=== PATIENT | female | born 1940 | race Caucasian/White ===

== ENCOUNTER → 2019-09-17 09:56 | Outpatient (BNVA) | payer MEDICARE, MEDICAID, SELFPAY | PROVIDERS: Family Provider Family Medicine; PCP Family Medicine; Visit Provider Anesthesiology | DX: M47.817 Spondylosis without myelopathy or radiculopathy, lumbosacral region (principal); M43.06 Spondylolysis, lumbar region; M51.36 Other intervertebral disc degeneration, lumbar region; M47.819 Spondylosis without myelopathy or radiculopathy, site unspecified; M46.1 Sacroiliitis, not elsewhere classified; Z79.891 Long term (current) use of opiate analgesic | CPT/HCPCS: 99214 ==

== ENCOUNTER → 2020-02-10 11:09 | Outpatient (BNVA) | payer MEDICARE, OTHER, MEDICAID, SELFPAY | PROVIDERS: Family Provider Family Medicine; PCP Family Medicine; Visit Provider Nurse Practitioner Family | DX: N39.41 Urge incontinence (principal); R82.71 Bacteriuria | CPT/HCPCS: 80053; 81001; 87077; 87086; 87186 ==

== ENCOUNTER → 2020-03-30 10:33 | Outpatient (BNVA) | payer MEDICARE, OTHER, MEDICAID, SELFPAY | PROVIDERS: Family Provider Family Medicine; PCP Family Medicine; Visit Provider Anesthesiology | DX: M54.41 Lumbago with sciatica, right side (principal); M51.36 Other intervertebral disc degeneration, lumbar region; M43.06 Spondylolysis, lumbar region; M47.817 Spondylosis without myelopathy or radiculopathy, lumbosacral region; M47.819 Spondylosis without myelopathy or radiculopathy, site unspecified; Z79.891 Long term (current) use of opiate analgesic | CPT/HCPCS: 99214 ==

== ENCOUNTER → 2020-05-26 10:36 | Outpatient (BNVA) | payer MEDICARE, OTHER, MEDICAID, SELFPAY | PROVIDERS: Family Provider Family Medicine; PCP Family Medicine; Visit Provider Nurse Practitioner | DX: M51.36 Other intervertebral disc degeneration, lumbar region (principal); M43.06 Spondylolysis, lumbar region; M47.817 Spondylosis without myelopathy or radiculopathy, lumbosacral region; M46.1 Sacroiliitis, not elsewhere classified; M47.819 Spondylosis without myelopathy or radiculopathy, site unspecified; Z79.891 Long term (current) use of opiate analgesic | CPT/HCPCS: 99213 ==

== ENCOUNTER → 2020-08-24 08:21 | Outpatient (BNVA) | payer MEDICARE, OTHER, MEDICAID, SELFPAY | PROVIDERS: Family Provider Family Medicine; PCP Family Medicine; Visit Provider Nurse Practitioner | DX: M43.06 Spondylolysis, lumbar region (principal); M51.36 Other intervertebral disc degeneration, lumbar region; M47.817 Spondylosis without myelopathy or radiculopathy, lumbosacral region; M47.819 Spondylosis without myelopathy or radiculopathy, site unspecified; Z79.891 Long term (current) use of opiate analgesic | CPT/HCPCS: 99214 ==

== ENCOUNTER → 2020-09-24 09:37 | Outpatient (BNVA) | payer MEDICARE, OTHER, MEDICAID, SELFPAY | PROVIDERS: Family Provider Family Medicine; PCP Family Medicine; Visit Provider Anesthesiology | DX: M51.36 Other intervertebral disc degeneration, lumbar region (principal); M43.06 Spondylolysis, lumbar region; M47.817 Spondylosis without myelopathy or radiculopathy, lumbosacral region; M47.819 Spondylosis without myelopathy or radiculopathy, site unspecified; Z79.891 Long term (current) use of opiate analgesic | CPT/HCPCS: 99213 ==

== ENCOUNTER 2020-10-06 23:59 | Inpatient (IN) | payer MEDICARE, OTHER, MEDICAID, SELFPAY ==
[2020-10-07] VITALS (9 sets, daily range): BP systolic 100–142; BP diastolic 54–76; PULSE 97–122; RESP 16–24; TEMP 36.4–38.3; O2SAT 89–95; BMI 25.0
--- NOTE | 2020-10-07 00:11 | ECG_ITS ---
[facility] Test Date: 2020-10-07 Pat Name: Shari Mcclelland Department: Room: Gender: Female Paving Machine Operator: : [id number] Requested By: Andree Madsen Order Number: [id number] Joanne MD: Jill Garcia M.D. Measurements Intervals [place]ones Rate: 121 P: 62 PA: 172 QRS: -25 QRSD: 88 T: -68 QT: 338 QTc: 481 Interpretive Statements SINUS TACHYCARDIA POSSIBLE ANTERIOR MYOCARDIAL INFARCTION , OF INDETERMINATE AGE MODERATE T-WAVE ABNORMALITY, CONSIDER LATERAL ISCHEMIA MODERATE T-WAVE ABNORMALITY, CONSIDER INFERIOR ISCHEMIA Compared to ECG 03/02/2018 07:21:05 Myocardial infarct finding now present Possible ischemia now present Sinus rhythm no longer present T-wave abnormality still present Electronically Signed On 10-07-2020 7:26:18 FILEMAKER DEVELOPER by Jill Garcia M.D. [id number]
--- NOTE | 2020-10-07 00:13 | CTR_ITS ---
PROCEDURE INFORMATION: Exam: CT Head Without Contrast Exam date and time: 10/07/2020 12:22 AM Age: 79 years old Clinical indication: Altered mental status/memory loss; Patient HX: AMS. Decreased responsiveness. History of frequent falls. TECHNIQUE: Imaging protocol: Computed tomography of the head without contrast. Radiation optimization: All CT scans at this facility use at least one of these dose optimization techniques: automated exposure control; mA and/or kV adjustment per patient size (includes targeted exams where dose is matched to clinical indication); or iterative reconstruction. COMPARISON: CT head wo con* [id number] 02/27/2018 11:00 PM RADIATION DOSE METRICS: Total DLP (mGy-cm): 706.25 FINDINGS: Brain: There is mild diffuse cerebral atrophy. There is no acute intracranial hemorrhage. Cerebral ventricles: There is moderate ex vacuo dilation of the lateral ventricles. Basal cisterns are unremarkable. Bones/joints: The calvarium is intact. Paranasal sinuses: The paranasal sinuses are clear. Mastoid air cells: The mastoid air cells are clear. Soft tissues: The visible extracranial soft tissues are unremarkable. CT/CT head wo con* [id number] IMPRESSION: 1. No acute intracranial abnormality. 2. Stable moderate dilation of the lateral ventricles, greater than expected for the degree of atrophy. No change since 02/27/2018. Radiation Dose CTDIVOL = (mGy): DLP = 706.25 (mGy-cm)
[2020-10-07 00:40] LABS: Basophils % 0.6 %; Eosinophils % 0.2 %; Hematocrit 43.8 % (37.0-47.0); Hemoglobin 14.8 g/dL (11.5-15.3); Lymphocytes # 0.2 10^3/uL (0.8-4.8); Lymphocytes % 2.6 %; Mean Corpuscular HGB Conc 33.8 g/dL (30.0-36.0); Mean Corpuscular Hemoglobin 30.2 pg (28.0-34.0); Mean Corpuscular Volume 89.4 fL (81-99); Monocytes % 0.5 %; Neutrophils # 6.11 10^3/uL (1.8-7.7); Neutrophils % 95.2 %; Nucleated Red Blood Cells % 0 %; Platelet Count 159 10^3/cmm (130-400); Red Cell Distribution Width 12.9 % (12.1-15.1); White Blood Count 6.4 10^3/uL (4.0-10.0)
--- NOTE | 2020-10-07 00:49 | ED_ITS ---
HPI - Altered Mental Status General: Chief Complaint: Altered Mental Status Stated Complaint: vomiting Time Seen by Provider: 10/07/20 00:05 Source: EMS and other (detention staff) Mode of arrival: EMS Limitations: altered mental status History of Present Illness: HPI narrative: 79-[facility]-old female, [facility], brought in by EMS after [facility] staff reported that she woke up from sleep, vomited several times, and seemed confused. No fever. No recent complaints of abdominal pain or other GI symptoms. When EMS arrived, she was leaning over the bed rail, unresponsive to anything but painful stimuli. She had stable vital signs however. On arrival at the ED, she had a GCS of 8 initially, and shortly after she did start to follow some verbal commands was able to answer simple questions. On review of her medical records, she has a history of chronic pain, recurrent UTIs, CAD without mention of PCI or previous FL. No recent change in her daily opiate dosage. 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, without behavioral disturbance, loses train of thought, poor recall Depressive disorder Dyslipidemia Facet joint disease Fibromyalgia GERD (gastroesophageal reflux disease) History of 2019 novel coronavirus disease (COVID-19) Hypothyroidism Lumbar spondylolysis Nocturnal enuresis Opioid dependence NOAM (obstructive sleep apnea) Osteoporosis Spondylosis of lumbosacral region Urgency incontinence Surgical History (Updated 10/07/20 @ 05:24 by Rosie Jacome MD) H/O section x2 History of carpal tunnel release bilateral S/P appendectomy S/P cholecystectomy S/P total knee replacement Left Family History Other Diabetes Hypertension Social History (Updated 10/07/20 @ 08:13 by Rosie Jacome MD) Smoking and tobacco status: never smoked Alcohol intake: never Adopted: No Housing: Senior Living Marital status: Current occupational status: retired Current gender identity: Female Physical Exam Const: EXAM LIMITATIONS: altered mental status GENERAL APPEARANCE: lethargic, ill appearing and frail appearing NUTRITIONAL APPEARANCE: underweight ORIENTATION/CONSCIOUSNESS: Yes oriented to person, Yes patient obtunded and Yes lethargic HENMT: COMMON NORMALS: normocephalic and atraumatic HEAD & SCALP: normocephalic and atraumatic FACE & SINUS: face symmetric MOUTH: Normal oral and palatal mucosa present (Dry mucous membranes, edentulous) Eye: COMMON NORMALS: Equal, round and reactive pupils present and conjunctivae normal CONJUNCTIVA: Yes conjunctivae normal SCLERA: sclerae normal CORNEA: Yes corneas normal PUPIL: Yes Equal, round and reactive pupils present Chest: COMMONS NORMALS: normal inspection of the chest and normal palpation of entire chest wall Resp: COMMON NORMALS: normal respiratory effort EFFORT & INSPECTION: Yes symmetric chest movement, No tachypneic, No respiratory distress and No labored Cardio: COMMON NORMALS: regular rhythm RATE: tachycardic RHYTHM: regular rhythm HEART SOUNDS: no murmurs GI: COMMON NORMALS: Soft to palpation and non-tender AUSCULTATION: Yes normoactive bowel sounds PALPATION: Yes Soft to palpation, No Guarding due to palpation present (GI), No Rigid due to palpation, No Pulsatile mass present and No Ascites present Back/Pelvis: GENERAL BACK: No erythema and No ecchymosis Extremity: COMMON NORMALS: no pedal edema GENERAL: No clubbing, No cyanosi s, No deformity and Yes pallor Neuro: ALEX COMA SCALE: document GCS findings [place] coma scale eye opening: To sound Alex coma scale verbal response: Words [place] coma scale motor response: Obey commands [place] coma scale total score: 12 COMMON NORMALS: moves all extremities and no focal motor deficits SENSORIUM/ORIENTATION: Yes oriented to person, Yes lethargic, Yes somnolent and Yes fluctuating sensorium GAIT: Yes Unable to assess gait MOTOR EXAM: No Tremors during motor activity present, No Motor fasciculations present and No Abnormal muscle tone present Skin: GENERAL SKIN EXAM: dry skin, no ecchymo, no erythema, no jaundice, no mottling, no petechiae, no purpura and turgor decreased Course Vital Signs: Vital signs: Vital Signs Temperature 97.8 F 10/07/20 07:48 Pulse Rate 103 H 10/07/20 07:48 Respiratory Rate 18 10/07/20 07:48 Blood Pressure 125/61 10/07/20 07:48 Pulse Oximetry 92 10/07/20 07:48 MDM - Altered Mental Status MDM Narrative: Medical decision making narrative: 79-year-old female [facility] with [facility], vomiting, and decreased responsiveness. GCS in the field 7, 8 on arrival, improved to 13 after initial resuscitation with fluids and antibiotics. Still very lethargic and frail appearing. CT head negative for any acute process. CBC normal. pH 7.42, PaO2 70 on 3 LNC Chest x-ray without any acute abnormalities. CTA chest done due to D-dimer greater> 20, tachycardia, and hypoxia; no acute PE or consolidations. Stool sent for C. difficile, patient had several episodes of diarrhea. Discussed the case with Dr. Jacome,hospitalist. She accepts the admission. Lab Data: Labs: Lab Results 10/07/20 10/07/20 10/07/20 Range/Units 00:20 00:20 00:20 WBC 6.4 (4.0-10.0) 10^3/ uL RBC 4.90 (4.1-5.3) 10^6/u L Hgb 14.8 (11.5-15.3) g/dL Hct 43.8 (37.0-47.0) % MCV 89.4 (81-99) fL MCH 30.2 (28.0-34.0) pg MCHC 33.8 (30.0-36.0) g/dL RDW 12.9 (12.1-15.1) % Plt Count 159 (130-400) 10^3/c mm MPV 9.0 (7.4-10.4) fL Neut % (Auto) 95.2 % Lymph % (Auto) 2.6 % [place] % (Auto) 0.5 % Eos % (Auto) 0.2 % Baso % (Auto) 0.6 % Neut # (Auto) 6.11 (1.8-7.7) 10^3/u L Lymph # (Auto) 0.2 L (0.8-4.8) 10^3/u L [place] # (Auto) 0.0 L (0.2-0.9) 10^3/u L Eos # (Auto) 0.0 (0.0-0.8) 10^3/u L Baso # (Auto) 0.0 (0.0-0.1) 10^3/u L Nucleated RBC % (a uto) 0 % Nucleated RBCs # 0.0 /100WBC PT 15.30 H (12.1-14.9) SECO NDS INR 1.17 (0.8-1.2) D-Dimer >= 20.00 H (0-0.59) ug/mIFE U Specimen Type Sample Site ABG pH (7.35-7.45) ABG pCO2 (35-45) mmHg ABG pO2 (80.0-100.0) mmH g ABG HCO3 (22-26) mmol/L ABG O2 Saturation ABG Base Excess (-2.0-2.0) mmol/ L Brenton Test A-a O2 Gradient (5-10) mmHg Hematocrit (37-47) % Hgb O2 Saturation (95-100) % Carboxyhemoglobin (0.4-20.1) %THgb Methemoglobin (0.4-1.5) % Total Hemoglobin (12-16) g/dL Ionized Calcium (1.1-1.4) mmol/L O2 Delivery Device O2 Liters/Min % FiO2 % [employer] Reading Teacher ID Sodium 141 (136-145) mmol/L Potassium 3.2 L (3.5-5.1) mmol/L Chloride 102 (98-107) mmol/L Carbon Dioxide 24 (22-29) mmol/L Anion Gap 18.2 (5-19) BUN 14 (8-23) mg/dL Creatinine 1.0 H (0.5-0.9) mg/dL GFR Calculation Not Reportable Glucose 140 H (65-115) mg/dL Calculated Osmolal ity 295 (285-295) mOsm/k g Lactic Acid (0.5-2.2) mmol/L Lactic Acid (Sepsi s) (0.5-2.2) mmol/L Calcium 9.0 (8.5-10.5) mg/dL Magnesium 1.6 L (1.7-2.3) mg/dL Total Bilirubin 1.0 (0.15-1.2) mg/dL AST 215 H (0-32) U/L ALT 101 H (0-33) U/L Alkaline Phosphata se 136 H (35-105) IU/L Creatine Kinase 80 (26-192) U/L Total Protein 6.6 (6.6-8.7) g/dL Albumin 3.9 (3.5-5.2) g/dL Globulin 2.7 (1.3-4.6) g/dL Lipase 8 L (13-60) U/L Urine Color (Yellow) Urine Appearance (CLEAR) Urine pH (5-7) Ur Specific Gravit y (1.005-1.030) Urine Protein (Negative) Urine Glucose (UA) (Normal) Urine Ketones (Negative) Urine Blood (Negative) Urine Nitrate (Negative) Urine Bilirubin (Negative) Urine Urobilinogen (Negative) mg/dL Ur Leukocyte Sunni ase (Negative) Urine RBC (0-2) /hpf Urine WBC (0-5) /hpf Ur Squamous Epith Cells (0-5) /hpf Amorphous Sediment Urine Bacteria (NONE) /hpf Urine Mucus /hpf 10/07/20 10/07/20 10/07/20 Range/Units 00:20 00:30 00:45 WBC (4.0-10.0) 10^3/ uL RBC (4.1-5.3) 10^6/u L Hgb (11.5-15.3) g/dL Hct (37.0-47.0) % MCV (81-99) fL MCH (28.0-34.0) pg MCHC (30.0-36.0) g/dL RDW (12.1-15.1) % Plt Count (130-400) 10^3/c mm MPV (7.4-10.4) fL Neut % (Auto) % Lymph % (Auto) % [place] % (Auto) % Eos % (Auto) % Baso % (Auto) % Neut # (Auto) (1.8-7.7) 10^3/u L Lymph # (Auto) (0.8-4.8) 10^3/u L [place] # (Auto) (0.2-0.9) 10^3/u L Eos # (Auto) (0.0-0.8) 10^3/u L Baso # (Auto) (0.0-0.1) 10^3/u L Nucleated RBC % (a uto) % Nucleated RBCs # /100WBC PT (12.1-14.9) SECO NDS INR (0.8-1.2) D-Dimer (0-0.59) ug/mIFE U Specimen Type Arterial Sample Site Radial, right ABG pH 7.42 (7.35-7.45) ABG pCO2 38.7 (35-45) mmHg ABG pO2 70.0 L (80.0-100.0) mmH g ABG HCO3 25.2 (22-26) mmol/L ABG O2 Saturation 95.2 ABG Base Excess 0.8 (-2.0-2.0) mmol/ L Brenton Test N/a A-a O2 Gradient 10.8 H (5-10) mmHg Hematocrit 45.1 (37-47) % Hgb O2 Saturation 93.5 L (95-100) % Carboxyhemoglobin 0.8 (0.4-20.1) %THgb Methemoglobin 1.0 (0.4-1.5) % Total Hemoglobin 14.7 (12-16) g/dL Ionized Calcium 1.1 (1.1-1.4) mmol/L O2 Delivery Device Nc O2 Liters/Min 2.0 % FiO2 28.0 % [employer] Reading Teacher ID [id number] Sodium 142.0 (136-145) mmol/L Potassium 3.0 L (3.5-5.1) mmol/L Chloride (98-107) mmol/L Carbon Dioxide (22-29) mmol/L Anion Gap (5-19) BUN (8-23) mg/dL Creatinine (0.5-0.9) mg/dL GFR Calculation Glucose 159.0 H (65-115) mg/dL Calculated Osmolal ity (285-295) mOsm/k g Lactic Acid 3.1 H (0.5-2.2) mmol/L Lactic Acid (Sepsi s) (0.5-2.2) mmol/L Calcium (8.5-10.5) mg/dL Magnesium (1.7-2.3) mg/dL Total Bilirubin (0.15-1.2) mg/dL AST (0-32) U/L ALT (0-33) U/L Alkaline Phosphata se (35-105) IU/L Creatine Kinase (26-192) U/L Total Protein (6.6-8.7) g/dL Albumin (3.5-5.2) g/dL Globulin (1.3-4.6) g/dL Lipase (13-60) U/L Urine Color Yellow (Yellow) Urine Appearance Cloudy (CLEAR) Urine pH 5 (5-7) Ur Specific Gravit y 1.010 (1.005-1.030) Urine Protein Neg (Negative) Urine Glucose (UA) Norm (Normal) Urine Ketones Negative (Negative) Urine Blood 3+ H (Negative) Urine Nitrate Negative (Negative) Urine Bilirubin Neg (Negative) Urine Urobilinogen Norm (Negative) mg/dL Ur Leukocyte Sunni ase Negative (Negative) Urine RBC >100 H (0-2) /hpf Urine WBC >100 H (0-5) /hpf Ur Squamous Epith Cells 0-4 H (0-5) /hpf Amorphous Sediment Not Reportable Urine Bacteria 3+ H (NONE) /hpf Urine Mucus Trace /hpf 10/07/20 Range/Units 04:17 WBC (4.0-10.0) 10^3/ uL RBC (4.1-5.3) 10^6/u L Hgb (11.5-15.3) g/dL Hct (37.0-47.0) % MCV (81-99) fL MCH (28.0-34.0) pg MCHC (30.0-36.0) g/dL RDW (12.1-15.1) % Plt Count (130-400) 10^3/c mm MPV (7.4-10.4) fL Neut % (Auto) % Lymph % (Auto) % [place] % (Auto) % Eos % (Auto) % Baso % (Auto) % Neut # (Auto) (1.8-7.7) 10^3/u L Lymph # (Auto) (0.8-4.8) 10^3/u L [place] # (Auto) (0.2-0.9) 10^3/u L Eos # (Auto) (0.0-0.8) 10^3/u L Baso # (Auto) (0.0-0.1) 10^3/u L Nucleated RBC % (a uto) % Nucleated RBCs # /100WBC PT (12.1-14.9) SECO NDS INR (0.8-1.2) D-Dimer (0-0.59) ug/mIFE U Specimen Type Sample Site ABG pH (7.35-7.45) ABG pCO2 (35-45) mmHg ABG pO2 (80.0-100.0) mmH g ABG HCO3 (22-26) mmol/L ABG O2 Saturation ABG Base Excess (-2.0-2.0) mmol/ L Brenton Test A-a O2 Gradient (5-10) mmHg Hematocrit (37-47) % Hgb O2 Saturation (95-100) % Carboxyhemoglobin (0.4-20.1) %THgb Methemoglobin (0.4-1.5) % Total Hemoglobin (12-16) g/dL Ionized Calcium (1.1-1.4) mmol/L O2 Delivery Device O2 Liters/Min % FiO2 % [employer] Reading Teacher ID Sodium (136-145) mmol/L Potassium (3.5-5.1) mmol/L Chloride (98-107) mmol/L Carbon Dioxide (22-29) mmol/L Anion Gap (5-19) BUN (8-23) mg/dL Creatinine (0.5-0.9) mg/dL GFR Calculation Glucose (65-115) mg/dL Calculated Osmolal ity (285-295) mOsm/k g Lactic Acid (0.5-2.2) mmol/L Lactic Acid (Sepsi s) 2.6 H (0.5-2.2) mmol/L Calcium (8.5-10.5) mg/dL Magnesium (1.7-2.3) mg/dL Total Bilirubin (0.15-1.2) mg/dL AST (0-32) U/L ALT (0-33) U/L Alkaline Phosphata se (35-105) IU/L Creatine Kinase (26-192) U/L Total Protein (6.6-8.7) g/dL Albumin (3.5-5.2) g/dL Globulin (1.3-4.6) g/dL Lipase (13-60) U/L Urine Color (Yellow) Urine Appearance (CLEAR) Urine pH (5-7) Ur Specific Gravit y (1.005-1.030) Urine Protein (Negative) Urine Glucose (UA) (Normal) Urine Ketones (Negative) Urine Blood (Negative) Urine Nitrate (Negative) Urine Bilirubin (Negative) Urine Urobilinogen (Negative) mg/dL Ur Leukocyte Sunni ase (Negative) Urine RBC (0-2) /hpf Urine WBC (0-5) /hpf Ur Squamous Epith Cells (0-5) /hpf Amorphous Sediment Urine Bacteria (NONE) /hpf Urine Mucus /hpf Discharge Plan Discharge Patient Disposition: Admitted As Inpatient Admit Provider: Rosie Jacome Clinical Impression: Level of consciousness decreased, Acute alteration in mental status, Acute UTI, Acute dehydration Condition: Stable Coding Level of Care Code ED Press Tool Maker for Chg Fwd Exam Comprehensive
[2020-10-07 00:52] LABS: Bilirubin Urine Neg (Negative); Blood Urine 3+ (Negative); Glucose Urine UA Norm (Normal); Ketones Urine Negative (Negative); Leukocyte Esterase Urine Negative (Negative); Nitrate Urine Negative (Negative); Protein Urine Neg (Negative); Urine Appearance Cloudy (CLEAR); Urine Color Yellow (Yellow); Urobilinogen Urine Norm (Negative); pH Urine 5 (5-7)
[2020-10-07 00:53] LABS: RBC Urine >100 /hpf (0-2); Squamous Epithelial Cell Urine 0-4 /hpf (0-5); WBC Urine >100 /hpf (0-5)
[2020-10-07 00:53] LABS: INR 1.17 (0.8-1.2)
[2020-10-07 00:54] LABS: Add Urine Culture? Yes; Bacteria Urine 3+ /hpf; Mucus Urine TRACE /hpf
[2020-10-07 00:56] LABS: ABG PCO2 38.7 mmHg (35-45); ABG PH Result 7.42 (7.35-7.45); Alveolar-Arterial Oxygen Gradi 10.8 mmHg (5-10); Arterial Blood Gas Hematocrit 45.1 % (37-47); Base Excess ABG 0.8 mmol/L (-2.0-2.0); Blood Gas Sample Site Radial, right; Blood Gas Sample Type Arterial; Carboxyhemoglobin 0.8 %THgb (0.4-20.1); HCO3 ABG 25.2 mmol/L (22-26); HGB O2 Sat 93.5 % (95-100); Ionized Calcium Level - ABG 1.1 mmol/L (1.1-1.4); Oxygen Device NC; Oxygen Saturation ABG 95.2; Total Hemoglobin 14.7 g/dL (12-16)
[2020-10-07 01:00] LABS: Alanine Aminotransferase 101 U/L (0-33); Albumin Level 3.9 g/dL (3.5-5.2); Alkaline Phosphatase 136 IU/L (35-105); Anion Gap 18.2 (5-19); Aspartate Amino Transferase 215 U/L (0-32); Blood Urea Nitrogen 14 mg/dL (8-23); Carbon Dioxide 24 mmol/L (22-29); Chloride 102 mmol/L (98-107); Creatine Phosphokinase 80 U/L (26-192); Globulin 2.7 g/dL (1.3-4.6); Glucose 140 mg/dL (65-115); Lipase 8 U/L (13-60); Magnesium 1.6 mg/dL (1.7-2.3); Osmolality Calculated 295 mOsm/kg (285-295); Potassium 3.2 mmol/L (3.5-5.1); Sodium 141 mmol/L (136-145); Total Protein 6.6 g/dL (6.6-8.7)
[2020-10-07 01:02] LABS: Lactic Sepsis W/Reflex 3.1 mmol/L (0.5-2.2)
[2020-10-07 01:10] LABS: D Dimer >= 20.00 ug/mIFEU (0-0.59)
[2020-10-07] MEDS: sodium chloride 0.9% 1,000 ML 999 ML IV ×2 (01:12→03:05)
[2020-10-07] MEDS: cefTRIAXone 1,000 MG in sodium chloride 0.9% (plus) 50 ML 100 MG IV (01:12)
--- NOTE | 2020-10-07 01:13 | CTR_ITS ---
PROCEDURE INFORMATION: Exam: CT Angiography Chest With Contrast Exam date and time: 10/07/2020 1:19 AM Age: 79 years old Clinical indication: Shortness of breath; Prior surgery; Surgery type: Gb; Patient HX: AMS. Tachycardic with hypoxia on room air. ; Additional info: Tachycardia, hypoxia, altered mental status TECHNIQUE: Imaging protocol: Computed tomographic angiography of the chest with contrast. 3D rendering (Not supervised by radiologist): MIP and/or 3D reconstructed images were created by the technologist. Radiation optimization: All CT scans at this facility use at least one of these dose optimization techniques: automated exposure control; mA and/or kV adjustment per patient size (includes targeted exams where dose is matched to clinical indication); or iterative reconstruction. Contrast material: VISI 320; Contrast volume: 78 ml; Contrast route: INTRAVENOUS (IV); COMPARISON: CR Chest 1 [place] [id number] 03/02/2018 7:39 AM RADIATION DOSE METRICS: Total DLP (mGy-cm): 468.47 FINDINGS: Limitations: Motion on multiple slices. Prominent streak artifacts from dense venous contrast. Pulmonary arteries: No central embolus or suggestion of a segmental embolus. Poor detail of multiple subsegmental pulmonary arteries. Aorta: No aortic aneurysm or suggestion of dissection. Lungs: Patchy stranding and minimal haziness in the lungs, mostly in the right lower lobe. No consolidation. Pleural spaces: No pleural fluid or pneumothorax. Heart: Slight cardiac prominence. No pericardial effusion. Lymph nodes: No suggestion of enlarged nodes. Diaphragm: Elevation of the right hemidiaphragm. Liver: Extension of the right colon anterior to the liver. Gallbladder and bile ducts: Cholecystectomy. Bones/joints: A few old minimal compression fractures. Subchondral defects in the humeral heads. Soft tissues: Probable evidence of stranding in the left anterior pararenal fat on the lowest slices. CT/CT angio chest PE protcl [id number] IMPRESSION: 1. No large pulmonary embolus. Poor detail of multiple small pulmonary arteries. 2. Probable stranding in the left anterior pararenal fat in the upper abdomen, significance unclear. 3. Patchy stranding and minimal haziness in the lungs consistent with atelectasis. Other findings detailed above. Radiation Dose CTDIVOL = (mGy): DLP = 468.47 (mGy-cm)
--- NOTE | 2020-10-07 01:44 | PC.NURSE ---
Pt son at bedside - update given.
[2020-10-07] MEDS: iodixanol 320 mg/mL 100mL Btl IV (01:46)
[2020-10-07 02:20] LABS: Reflex Lactate Order REFLEX LACTIC ORDERD
[2020-10-07 04:38] LABS: Lactic Acid level (Lactate) 2.6 mmol/L (0.5-2.2)
--- NOTE | 2020-10-07 04:54 | PM.HP ---
Providers/Chief Complaint Admitting Physician: Rosie Jacome MD Primary Care Provider: Kim Kemp MD Chief Complaint: vomiting History of Present Illness Shari Mcclelland is a 79 year old female who presents from [place] with vomiting and change in mental status. She vomited multiple times. No report of any blood in the vomitus. No report of changes in bowel movements, abdominal pain. She chronically has difficulty with urination and incontinence. She was not able to provide any information on arrival to the emergency room being unresponsive except to painful stimuli. By the time I saw her she was starting to come around and would answer very simple questions. She does report increased dysuria lately. Denies any history of gross hematuria. Denied having any fevers recently. No reports of any chest pain. She did have Covid but was able to be managed in the outpatient setting. Saturations were low when EMS arrived and she has continued to require 2 L by nasal cannula though saturations have improved significantly. She denied cough or respiratory symptoms. Is not chronically on oxygen and has not required oxygen since her Covid diagnosis. She did not receive the Covid vaccine yet as when the pharmacy came to administer she had just been diagnosed with Covid. Work-up in the emergency room showed evidence of it was felt to be urinary tract infection. No evidence of pulmonary infection or PE was identified. She received 2 L of saline bolus and some Rocephin in the emergency room and as noted had started to show improvement clinically. She is being admitted for continued treatment. History was obtained from a review of old records, discussion with her son as well as asking her a few questions. Corrections were made to some of her documented history that was incorrect. Review of Systems Const: Denies: fever(s) or change in appetite Eyes: Denies: change in vision ENMT: Denies: throat pain Card: Denies: chest pain Resp: Denies: dyspnea or productive cough GI: Reports: abdominal pain, nausea and vomiting; Denies: diarrhea or constipation : Reports: difficulty voiding, urinary frequency and urinary urgency Musc: Reports: muscle weakness Skin/Breast: Denies: rash Neuro: Denies: weakness in extremities Psych: Denies: anxiety [place]/Lymph: Denies: easy bleeding Medications/Allergies Home Medications Medication Instructions Recorded Confirmed Last Taken Type acetaminophen 325 mg capsule 325 mg PO ONCE PRN 09/15/19 09/24/20 Unknown History aspirin 81 mg tablet,delayed 81 mg PO QDAY 09/15/19 09/24/20 Unknown History release duloxetine 60 mg capsule,delayed 60 mg PO QDAY 09/15/19 09/24/20 Unknown History release fluticasone furoate 50 INHALATION 09/15/19 09/24/20 Unknown History mcg/actuation blister powder for inhalation levothyroxine 25 mcg capsule 25 mcg PO QDAY 09/15/19 09/24/20 Unknown History omeprazole 20 mg capsule,delayed 20 mg PO QDAY 09/15/19 09/24/20 Unknown History release oxybutynin chloride 10 mg 10 mg PO QDAY 09/15/19 09/24/20 Unknown History tablet,extended release 24 hr potassium chloride 10 mEq 10 meq PO QDAY 09/15/19 09/24/20 Unknown History capsule,extended release pravastatin 10 mg tablet 10 mg PO QDAY 09/15/19 09/24/20 Unknown History topiramate 50 mg tablet 50 mg PO BID 09/15/19 09/24/20 Unknown History trazodone 100 mg tablet 100 mg PO QDAY 09/15/19 09/24/20 Unknown History gabapentin 600 mg tablet 600 mg PO TID 12/08/19 09/24/20 Unknown History vitamin B complex 1 tab PO DAILY 12/08/19 09/24/20 Unknown History cefuroxime axetil 500 mg tablet 500 mg PO BID #60 tab 04/07/20 09/24/20 Unknown Rx ondansetron HCl 4 mg tablet 4 mg PO Q6H PRN 08/24/20 09/24/20 Unknown History fentanyl 50 mcg/hr transdermal 1 patch TRANSDERMA Q72H 30 Days 09/24/20 09/24/20 Unknown Rx patch #10 each fentanyl 50 mcg/hr transdermal 1 patch TRANSDERMA Q72H 30 Days 09/24/20 09/24/20 Unknown Rx patch #10 each methocarbamol 750 mg tablet 375 mg PO TID PRN #45 tab 09/24/20 09/24/20 Unknown Rx tramadol 50 mg tablet 100 mg PO Q6H 30 Days #240 tab 09/24/20 09/24/20 Unknown Rx Allergies Allergy/AdvReac Type Severity Reaction Status Date / Time adhesive tape Allergy ALGY-Rash Verified 10/07/20 08:14 codeine Allergy Unknown Verified 10/07/20 08:14 Sulfa (Sulfonamide Allergy Unknown Verified 10/07/20 08:14 Antibiotics) PFSH Acute PFSH: Medical History (Updated 10/07/20 @ 08:00 by Rosie Jacome MD) Anxiety 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 RCA and LAD Benign essential hypertension Bilateral sacroiliitis DDD (degenerative disc disease), lumbar 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, without behavioral disturbance, loses train of thought, poor recall Depressive disorder Dyslipidemia Facet joint disease Fibromyalgia GERD (gastroesophageal reflux disease) History of 2019 novel coronavirus disease (COVID-19) Hypothyroidism Lumbar spondylolysis Nocturnal enuresis Opioid dependence NOAM (obstructive sleep apnea) Osteoporosis Spondylosis of lumbosacral region Urgency incontinence Surgical History (Updated 10/07/20 @ 05:24 by Rosie Jacome MD) H/O section x2 History of carpal tunnel release bilateral S/P appendectomy S/P cholecystectomy S/P total knee replacement Left Family History Other Diabetes Hypertension Social History (Updated 10/07/20 @ 08:13 by Rosie Jacome MD) Smoking and tobacco status: never smoked Alcohol intake: never Adopted: No Housing: Care Home Marital status: Current occupational status: retired Current gender identity: Female Vitals/I&O/Wt Last Vital Signs Temp 97.5 F L 10/07/20 00:03 Pulse 112 H 10/07/20 01:19 Resp 24 H 10/07/20 01:19 BP 142/68 10/07/20 01:19 Pulse Ox 94 10/07/20 01:19 10/06/20 10/06/20 10/07/20 14:59 22:59 06:59 Intake Total 1050 / 1050 Balance 1050 / 1050 Weight last 48 hrs Weight 74.843 kg Physical Exam Const: OTHER: Lethargic, with stimulation will answer simple questions with nod of her head though not very conversive HENMT: OTHER: Normocephalic atraumatic, dry mucous membranes Eye: OTHER: Pupils are equal bilaterally and reactive Neck/C-Spine: OTHER: Supple Resp: OTHER: Clear to auscultation bilaterally, no rales, rhonchi or wheezes noted, no accessory muscle use noted Cardio: OTHER: Tachycardic but regular rhythm, no murmurs, no mottling, pulses are equal x4 GI: OTHER: Abdomen soft, mild left sided quadrant tenderness initially noted for monitoring facial expressions and hand movements but not persistently reproducible, no rebound, positive bowel sounds, no CVA tenderness noted : OTHER: Murray catheter in place with dark yellow urine, no gross blood Extremity: NARRATIVE EXTREMITY EXAM: No pitting edema or acute synovitis Neuro: OTHER: Face symmetric, moves all extremities though weak at the moment, toes downgoing Skin: OTHER: Dry, a few minor bruises and scabs but no acute rashes noted Urinary Catheter Management^: Murray: Cath Placed During This Visit: yes Urinary Catheter Date of Insertion: 10/07/20 Data : 10/07/20 00:20 10/07/20 00:20 Other Labs: Laboratory Last Values WBC 6.4 10^3/uL (4.0-10.0) 10/07/20 00:20 RBC 4.90 10^6/uL (4.1-5.3) 10/07/20 00:20 Hgb 14.8 g/dL (11.5-15.3) 10/07/20 00:20 Hct 43.8 % (37.0-47.0) 10/07/20 00:20 MCV 89.4 fL (81-99) 10/07/20 00:20 MCH 30.2 pg (28.0-34.0) 10/07/20 00:20 MCHC 33.8 g/dL (30.0-36.0) 10/07/20 00:20 RDW 12.9 % (12.1-15.1) 10/07/20 00:20 Plt Count 159 10^3/cmm (130-400) 10/07/20 00:20 MPV 9.0 fL (7.4-10.4) 10/07/20 00:20 Neut % (Auto) 95.2 % 10/07/20 00:20 Lymph % (Auto) 2.6 % 10/07/20 00:20 [place] % (Auto) 0.5 % 10/07/20 00:20 Eos % (Auto) 0.2 % 10/07/20 00:20 Baso % (Auto) 0.6 % 10/07/20 00:20 Neut # (Auto) 6.11 10^3/uL (1.8-7.7) 10/07/20 00:20 Lymph # (Auto) 0.2 10^3/uL (0.8-4.8) L 10/07/20 00:20 [place] # (Auto) 0.0 10^3/uL (0.2-0.9) L 10/07/20 00:20 Eos # (Auto) 0.0 10^3/uL (0.0-0.8) 10/07/20 00:20 Baso # (Auto) 0.0 10^3/uL (0.0-0.1) 10/07/20 00:20 Nucleated RBC % (auto) 0 % 10/07/20 00:20 Nucleated RBCs # 0.0 /100WBC 10/07/20 00:20 PT 15.30 SECONDS (12.1-14.9) H 10/07/20 00:20 INR 1.17 (0.8-1.2) 10/07/20 00:20 D-Dimer >= 20.00 ug/mIFEU (0-0.59) H 10/07/20 00:20 Specimen Type Arterial 10/07/20 00:45 Sample Site Radial, right 10/07/20 00:45 ABG pH 7.42 (7.35-7.45) 10/07/20 00:45 ABG pCO2 38.7 mmHg (35-45) 10/07/20 00:45 ABG pO2 70.0 mmHg (80.0-100.0) L 10/07/20 00:45 ABG HCO3 25.2 mmol/L (22-26) 10/07/20 00:45 ABG O2 Saturation 95.2 10/07/20 00:45 ABG Base Excess 0.8 mmol/L (-2.0-2.0) 10/07/20 00:45 [place] Test N/a 10/07/20 00:45 A-a O2 Gradient 10.8 mmHg (5-10) H 10/07/20 00:45 Hematocrit 45.1 % (37-47) 10/07/20 00:45 Hgb O2 Saturation 93.5 % (95-100) L 10/07/20 00:45 Carboxyhemoglobin 0.8 %THgb (0.4-20.1) 10/07/20 00:45 Methemoglobin 1.0 % (0.4-1.5) 10/07/20 00:45 Total Hemoglobin 14.7 g/dL (12-16) 10/07/20 00:45 Sodium 142.0 mmol/L (131-143) 10/07/20 00:45 Potassium 3.0 mmol/L (3.5-5.0) L 10/07/20 00:45 Glucose 159.0 mg/dL (70-115) H 10/07/20 00:45 Ionized Calcium 1.1 mmol/L (1.1-1.4) 10/07/20 00:45 O2 Delivery Device Nc 10/07/20 00:45 O2 Liters/Min 2.0 % 10/07/20 00:45 FiO2 28.0 % 10/07/20 00:45 Sprinkler Fitter Helper ID [id number] 10/07/20 00:45 Sodium 141 mmol/L (136-145) 10/07/20 00:20 Potassium 3.2 mmol/L (3.5-5.1) L 10/07/20 00:20 Chloride 102 mmol/L (98-107) 10/07/20 00:20 Carbon Dioxide 24 mmol/L (22-29) 10/07/20 00:20 Anion Gap 18.2 (5-19) 10/07/20 00:20 BUN 14 mg/dL (8-23) 10/07/20 00:20 Creatinine 1.0 mg/dL (0.5-0.9) H 10/07/20 00:20 GFR Calculation Not Reportable 10/07/20 00:20 Glucose 140 mg/dL (65-115) H 10/07/20 00:20 Calculated Osmolality 295 mOsm/kg (285-295) 10/07/20 00:20 Lactic Acid 3.1 mmol/L (0.5-2.2) H 10/07/20 00:20 Lactic Acid (Sepsis) 2.6 mmol/L (0.5-2.2) H 10/07/20 04:17 Calcium 9.0 mg/dL (8.5-10.5) 10/07/20 00:20 Magnesium 1.6 mg/dL (1.7-2.3) L 10/07/20 00:20 Total Bilirubin 1.0 mg/dL (0.15-1.2) 10/07/20 00:20 AST 215 U/L (0-32) H 10/07/20 00:20 ALT 101 U/L (0-33) H 10/07/20 00:20 Alkaline Phosphatase 136 IU/L (35-105) H 10/07/20 00:20 Creatine Kinase 80 U/L (26-192) 10/07/20 00:20 Total Protein 6.6 g/dL (6.6-8.7) 10/07/20 00:20 Albumin 3.9 g/dL (3.5-5.2) 10/07/20:20 Globulin 2.7 g/dL (1.3-4.6) 10/07/20 00:20 Lipase 8 U/L (13-60) L 10/07/20 00:20 Urine Color Yellow (Yellow) 10/07/20 00:30 Urine Appearance Cloudy (CLEAR) 10/07/20 00:30 Urine pH 5 (5-7) 10/07/20 00:30 Ur Specific [place] 1.010 (1.005-1.030) 10/07/20 00:30 Urine Protein Neg (Negative) 10/07/20 00:30 Urine Glucose (UA) Norm (Normal) 10/07/20 00:30 Urine Ketones Negative (Negative) 10/07/20 00:30 Urine Blood 3+ (Negative) H 10/07/20 00:30 Urine Nitrate Negative (Negative) 10/07/20 00:30 Urine Bilirubin Neg (Negative) 10/07/20 00:30 Urine Urobilinogen Norm mg/dL (Negative) 10/07/20 00:30 Ur Leukocyte Esterase Negative (Negative) 10/07/20 00:30 Urine RBC >100 /hpf (0-2) H 10/07/20 00:30 Urine WBC >100 /hpf (0-5) H 10/07/20 00:30 Ur Squamous Epith Cells 0-4 /hpf (0-5) H 10/07/20 00:30 Amorphous Sediment Not Reportable 10/07/20 00:30 Urine Bacteria 3+ /hpf (NONE) H 10/07/20 00:30 Urine Mucus Trace /hpf 10/07/20 00:30 Micro: Microbiology 10/07/20 00:30 C.difficile Toxin B Gene (PCR) - Final Stool - Stool Aspirate CT Head: Radiologist's impression: FINDINGS: Brain: There is mild diffuse cerebral atrophy. There is no acute intracranial hemorrhage. Cerebral ventricles: There is moderate ex vacuo dilation of the lateral ventricles. Basal cisterns are unremarkable. Bones/joints: The calvarium is intact. Paranasal sinuses: The paranasal sinuses are clear. Mastoid air cells: The mastoid air cells are clear. Soft tissues: The visible extracranial soft tissues are unremarkable. CT/CT head wo con* [id number] IMPRESSION: 1. No acute intracranial abnormality. 2. Stable moderate dilation of the lateral ventricles, greater than expected for the degree of atrophy. No change since 02/27/2018. CTA Chest: Radiologist's impression: FINDINGS: Limitations: Motion on multiple slices. Prominent streak artifacts from dense venous contrast. Pulmonary arteries: No central embolus or suggestion of a segmental embolus. Poor detail of multiple subsegmental pulmonary arteries. Aorta: No aortic aneurysm or suggestion of dissection. Lungs: Patchy stranding and minimal haziness in the lungs, mostly in the right lower lobe. No consolidation. Pleural spaces: No pleural fluid or pneumothorax. Heart: Slight cardiac prominence. No pericardial effusion. Lymph nodes: No suggestion of enlarged nodes. Diaphragm: Elevation of the right hemidiaphragm. Liver: Extension of the right colon anterior to the liver. Gallbladder and bile ducts: Cholecystectomy. Bones/joints: A few old minimal compression fractures. Subchondral defects in the humeral heads. Soft tissues: Probable evidence of stranding in the left anterior pararenal fat on the lowest slices. CT/CT angio chest PE protcl [id number] IMPRESSION: 1. No large pulmonary embolus. Poor detail of multiple small pulmonary arteries. 2. Probable stranding in the left anterior pararenal fat in the upper abdomen, significance unclear. 3. Patchy stranding and minimal haziness in the lungs consistent with atelectasis. Other findings detailed above. EKG 1: I personally reviewed and interpreted this EKG as follows: My Interpretation: Sinus tachycardia 120s with some nonspecific ST segment changes A&P Assessment and plan (1) UTI (urinary tract infection): In a patient with longstanding urge incontinence. enuresis, urinary frequency. Last cultures with pansensitive e coli. Urine with + WBCs and RBCs, 3+ bacteria, though negative nitrates and leukocyte esterase. CT chest did show some pararenal stranding on the left. Status: Acute Qualifiers: Urinary tract infection type: acute pyelonephritis Qualified Code(s): N10 - Acute pyelonephritis (2) Sepsis: As evidenced by tachycardia, elevated WBC, lactic acidosis, transient hypoxemia, altered mental status. Currently with stable blood pressures and improving mentation with hydration. Status: Acute Qualifiers: Sepsis type: sepsis due to unspecified organism Sepsis acute organ dysfunction status: without acute organ dysfunction Qualified Code(s): A41.9 - Sepsis, unspecified organism (3) Opioid dependence: Status: Chronic Qualifiers: Substance use status: uncomplicated Qualified Code(s): F11.20 - Opioid dependence, uncomplicated (4) Atherosclerotic heart disease of [place] coronary artery without angina pectoris: Status: Chronic Qualifiers: [place] vs. transplanted heart: [place] heart Qualified Code(s): I25.10 - Atherosclerotic heart disease of [place] coronary artery without angina pectoris (5) Gait instability: Status: Chronic Additional A&P Information Hyperkalemia Elevated transaminases, currently of unclear significance Elevated blood sugar without a history of diabetes Inpatient admission Continue Rocephin Follow-up pending cultures Given additional 500 cc saline bolus then decrease IVFs Replace magnesium and potassium Add lactobacillus Continue home fentanyl, decrease home gabapentin for now, continue home cymbalta Wean oxygen as able, was not on at SNF Continue home aspirin, levothyroxine, statin Continue home PPI Check serial cardiac enzymes and EKGs SCDs and lovenox for DVT prophylaxis Supportive care otherwise Plans were discussed with patients son Everette, primary contact. He was given an opportunity to ask questions which were answered. Full code Attestations Medical Necessity Statement*: Anticipate hospital stay greater than 2 midnights in this patient presenting with findings of early sepsis from pyelonephritis. Coding Level of Care Code Acute Fondant Cooker for [facility] Fwd Diagnoses UTI (urinary tract infection) N10 Urinary tract infection type: acute pyelonephritis Sepsis A41.9 Sepsis type: sepsis due to unspecified organism Sepsis acute organ dysfunction status: without acute organ dysfunction Opioid dependence F11.20 Substance use status: uncomplicated Atherosclerotic heart disease of [place] coronary artery without angina pectoris I25.10 [place] vs. transplanted heart: [place] heart Gait instability R26.81
[2020-10-07] MEDS: sodium chloride 0.9% 500 ML IV (05:14)
[2020-10-07] MEDS: sodium chlor 0.9% + KCl 20 mEq 20 MEQ/1,000 ML BAG 100 MEQ IV ×2 (06:18→14:29)
[2020-10-07] MEDS: enoxaparin 40 mg/0.4 mL Syringe SUBCUT (06:18)
[2020-10-07] MEDS: magnesium sulfate premix 2 GM/50 ML PIGGYBACK IV (06:18)
--- NOTE | 2020-10-07 08:05 | ECG_ITS ---
[facility] Test Date: 2020-10-07 Pat Name: Shari Mcclelland Department: Room: 254 Gender: Female Order Schedule Clerk: : 1940 Requested By: Rosie Jacome Order Number: [id number] Joanne MD: Hernandez Pimentel M.D. Measurements Intervals [place] Rate: 104 P: 61 ID: 160 QRS: -34 QRSD: 96 T: 9 QT: 316 QTc: 417 Interpretive Statements SINUS TACHYCARDIA MARKED LEFT AXIS DEVIATION [QRS AXIS < -30] PATTERN CONSISTENT WITH PULMONARY DISEASE NONSPECIFIC T-WAVE ABNORMALITY Compared to ECG 10/07/2020 00:09:07 Left-axis deviation now present Myocardial infarct finding no longer present Possible ischemia no longer present T-wave abnormality still present Electronically Signed On 10-07-2020 16:03:16 CHECKER DUMP GROUNDS by Hernandez Pimentel M.D. [id number]
[2020-10-07 08:47] LABS: Troponin(5th) Baseline 22 ng/L (0-10)
[2020-10-07] MEDS: topiramate 25 mg Tablet 50 MG PO ×2 (09:06→17:47)
[2020-10-07] MEDS: lactobacillus 1 Tablet 1 TAB PO ×2 (09:06→17:47)
[2020-10-07] MEDS: potassium chloride ER 20 mEq Tablet PO (09:06)
[2020-10-07] MEDS: duloxetine 60 mg Capsule PO (09:06)
[2020-10-07] MEDS: aspirin 81 mg EC Tablet PO (09:06)
[2020-10-07] MEDS: pantoprazole DR 40 mg Tablet PO (09:06)
[2020-10-07] MEDS: oxybutynin 5 mg Tablet PO ×2 (09:06→17:47)
[2020-10-07] MEDS: gabapentin 300 mg Capsule PO ×3 (09:06→20:40)
[2020-10-07] MEDS: fentaNYL 50 mcg Patch 1 PATCH TRANSDERMA (09:07)
--- NOTE | 2020-10-07 10:05 | ECG_ITS ---
[facility] Test Date: 2020-10-07 Pat Name: Shari Mcclelland Department: Room: 254 Gender: Female Manager Internship: : 1940 Requested By: Rosie Jacome Order Number: [id number] Joanne MD: Hernandez Pimentel M.D. Measurements Intervals [place] Rate: 103 P: 53 CO: 177 QRS: -32 QRSD: 94 T: -9 QT: 325 QTc: 427 Interpretive Statements SINUS TACHYCARDIA MARKED LEFT AXIS DEVIATION [QRS AXIS < -30] PATTERN CONSISTENT WITH PULMONARY DISEASE MODERATE VOLTAGE CRITERIA FOR LVH, CONSIDER NORMAL VARIANT [MEETS CRITERIA IN ONE OF: R(aVL), S(V1), R(V5), R(V5/V6)+S(V1)] MODERATE T-WAVE ABNORMALITY, CONSIDER ANTERIOR ISCHEMIA [-0.1+ mV T WAVE IN V3/V4] Compared to ECG 10/07/2020 08:39:31 Possible ischemia now present T-wave abnormality still present Electronically Signed On 10-07-2020 16:06:09 PRESS CUTTER by Hernandez Pimentel M.D. [id number]
[2020-10-07 11:57] LABS: Troponin 5 2HR 22.36 ng/L (0-10); Troponin 5 2HR Delta 0.36 ABS# (0-10)
--- NOTE | 2020-10-07 14:05 | ECG_ITS ---
[facility] Test Date: 2020-10-07 Pat Name: Shari Mcclelland Department: Room: 254 Gender: Female Director Of Accreditation: : 1940 Requested By: Rosie Jacome Order Number: [id number] Joanne MD: Hernandez Pimentel M.D. Measurements Intervals [place] Rate: 96 P: 57 [place]: 169 QRS: -28 QRSD: 90 T: -6 QT: 335 QTc: 424 Interpretive Statements SINUS RHYTHM LEFT AXIS DEVIATION [QRS AXIS < -20] MODERATE VOLTAGE CRITERIA FOR LVH, CONSIDER NORMAL VARIANT [MEETS CRITERIA IN ONE OF: R(aVL), S(V1), R(V5), R(V5/V6)+S(V1)] MODERATE T-WAVE ABNORMALITY, CONSIDER ANTERIOR ISCHEMIA [-0.1+ mV T WAVE IN V3/V4] Compared to ECG 10/07/2020 10:35:11 Sinus tachycardia no longer present T-wave abnormality still present Possible ischemia still present Electronically Signed On 10-07-2020 16:05:19 COMPUTER HARDWARE TECHNICIAN by Hernandez Pimentel M.D. [email or web address] ([employer]: [place]).[employer] [facility].[employer]/store/OM/[id number]
--- NOTE | 2020-10-07 14:39 | PC.NURSE ---
patient refuses to swallow pills whole but this nurse able to crush and put in cranberry juice and patient tolerates liquids well.
--- NOTE | 2020-10-07 15:00 | PM.PN ---
Subjective Subjective: Interval history: Overnight labs and H&P reviewed. Remains afebrile and hemodynamically stable. No acute events overnight. Medications: Reviewed: Yes Vitals/I&O/Wt Last Vital Signs Temp 98.8 F 10/07/20 11:20 Pulse 101 H 10/07/20 12:19 Resp 16 10/07/20 11:20 BP 111/70 10/07/20 11:20 Pulse Ox 94 10/07/20 11:20 10/07/20 10/07/20 10/07/20 06:59 14:59 22:59 Intake Total 2550 / 2550 1228.333 / 1228.333 Balance 2550 / 2550 1228.333 / 1228.333 Weight last 48 hrs Weight 74.843 kg Physical Exam Narrative: EXAM NARRATIVE: GEN: Awake, oriented x2, repeats few short answers , chronically ill appearing lady CVS: S1S2 N RS: CTA B/L Abd: Soft, nt/nd , bs+ MANAGEMENT SPECIALIST: does not consistently follow commands for complete assessment Urinary Catheter Management^: Murray: Cath Placed During This Visit: yes Reason for Continuing Indwelling Catheter: Acute Urinary Retention or Obstruction Urinary Catheter Date of Insertion: 10/07/20 Data : 10/07/20 00:20 10/07/20 00:20 Micro: Microbiology 10/07/20 00:30 C.difficile Toxin B Gene (PCR) - Final Stool - Stool Aspirate A&P Assessment and plan (1) UTI (urinary tract infection): In a patient with longstanding urge incontinence. enuresis, urinary frequency. Last cultures with pansensitive e coli. Urine with + WBCs and RBCs, 3+ bacteria, though negative nitrates and leukocyte esterase. CT chest did show some pararenal stranding on the left. Continue ceftriaxone empirically, await urine cultures Status: Acute Qualifiers: Urinary tract infection type: acute pyelonephritis Qualified Code(s): N10 - Acute pyelonephritis (2) Sepsis: As evidenced by tachycardia, elevated WBC, lactic acidosis, transient hypoxemia, altered mental status. Currently with stable blood pressures and improving mentation with hydration. Status: Acute Qualifiers: Sepsis type: sepsis due to unspecified organism Sepsis acute organ dysfunction status: without acute organ dysfunction Qualified Code(s): A41.9 - Sepsis, unspecified organism (3) Opioid dependence: Status: Chronic Qualifiers: Substance use status: uncomplicated Qualified Code(s): F11.20 - Opioid dependence, uncomplicated (4) Atherosclerotic heart disease of [place] coronary artery without angina pectoris: Status: Chronic Qualifiers: [place] vs. transplanted heart: [place] heart Qualified Code(s): I25.10 - Atherosclerotic heart disease of [place] coronary artery without angina pectoris (5) Gait instability: Status: Chronic (6) Elevated d-dimer: negative for PE on CTA chest, check LE duplex for DVT CT head: no acute abnormalities Status: Acute Additional A&P Information Hyperkalemia Elevated transaminases, currently of unclear significance Elevated blood sugar without a history of diabetes Inpatient admission Continue Rocephin Follow-up pending cultures Given additional 500 cc saline bolus then decrease IVFs Replace magnesium and potassium Add lactobacillus Continue home fentanyl, decrease home gabapentin for now, continue home cymbalta Wean oxygen as able Continue home aspirin, levothyroxine, statin Continue home PPI serial cardiac enzymes without significant delta and EKGs without acute changes SCDs and lovenox for DVT prophylaxis Supportive care otherwise Full code Attestations Medical Necessity Statement*: ongoing admission for need for iv hydration and iv abx, pending cx Coding Level of Care Code Acute Campus Security Officer for [facility] Fwd Diagnoses UTI (urinary tract infection) N10 Urinary tract infection type: acute pyelonephritis Sepsis A41.9 Sepsis type: sepsis due to unspecified organism Sepsis acute organ dysfunction status: without acute organ dysfunction Opioid dependence F11.20 Substance use status: uncomplicated Atherosclerotic heart disease of [place] coronary artery without angina pectoris I25.10 [place] vs. transplanted heart: [place] heart Gait instability R26.81 Elevated d-dimer R79.89
[2020-10-07 16:32] LABS: Troponin 5 6HR 19.43 ng/L (0-10)
[2020-10-07 16:33] LABS: Troponin 5 6HR Delta -2.57 ng/L (0-12)
[2020-10-07] MEDS: atorvastatin 40 mg Tablet 20 MG PO (20:39)
[2020-10-08] VITALS (8 sets, daily range): BP systolic 93–139; BP diastolic 46–76; PULSE 88–97; RESP 16–18; TEMP 36.7–37.4; O2SAT 93–97
[2020-10-08] MEDS: cefTRIAXone 1,000 MG in sodium chloride 0.9% (plus) 50 ML 100 MG IV (03:01)
[2020-10-08] MEDS: sodium chlor 0.9% + KCl 20 mEq 20 MEQ/1,000 ML BAG 75 MEQ IV ×2 (03:07→15:20)
[2020-10-08 05:19] LABS: Hematocrit 34.2 % (37.0-47.0); Hemoglobin 11.5 g/dL (11.5-15.3); Mean Corpuscular HGB Conc 33.6 g/dL (30.0-36.0); Mean Corpuscular Hemoglobin 30.1 pg (28.0-34.0); Mean Corpuscular Volume 89.5 fL (81-99); Mean Platelet Volume 10.1 fL (7.4-10.4); Platelet Count 114 10^3/cmm (130-400); Red Blood Count 3.82 10^6/uL (4.1-5.3); Red Cell Distribution Width 13.6 % (12.1-15.1)
[2020-10-08] MEDS: enoxaparin 40 mg/0.4 mL Syringe SUBCUT (05:38)
[2020-10-08 05:41] LABS: Alanine Aminotransferase 58 U/L (0-33); Albumin Level 2.9 g/dL (3.5-5.2); Alkaline Phosphatase 93 IU/L (35-105); Anion Gap 14.1 (5-19); Aspartate Amino Transferase 49 U/L (0-32); Blood Urea Nitrogen 16 mg/dL (8-23); Calcium 7.8 mg/dL (8.5-10.5); Carbon Dioxide 23 mmol/L (22-29); Chloride 104 mmol/L (98-107); Globulin 2.5 g/dL (1.3-4.6); Glucose 83 mg/dL (65-115); Osmolality Calculated 284 mOsm/kg (285-295); Potassium 4.1 mmol/L (3.5-5.1); Sodium 137 mmol/L (136-145); Total Bilirubin 0.5 mg/dL (0.15-1.2); Total Protein 5.4 g/dL (6.6-8.7)
[2020-10-08] MEDS: levothyroxine 75 mcg Tablet PO (05:53)
--- NOTE | 2020-10-08 06:00 | USCV_ITS ---
Shari Mcclelland Age: 79 Gender: F : 1940 Exam Date: 10/08/2020 06:33 Ordering Phys: Radha Johnston MD Technologist: Risa Rodríguez Exam Location: [facility] [place] Indication: EVAL FOR DVT HISTORY: DVT. PROCEDURES: Venous duplex imaging was performed in bilateral lower extremities. The following venous structures were evaluated: common femoral vein, profunda vein, proximal portion of the greater saphenous vein, superficial femoral vein, and the popliteal vein. In addition, the posterior tibial and peroneal trunk were evaluated. Serial compression, augmentation maneuvers, and spectral Doppler flow evaluation were performed. FINDINGS: Normal 2-D Doppler and augmentation and compressibility throughout the lower extremity venous structures. Additional imaging through the proximal calf veins also reveals no thrombus. Limited evaluation of the greater saphenous vein is patent with no thrombus.. CONCLUSIONS No evidence of right lower extremity DVT. No evidence of left lower extremity DVT. Jose Teixeira MD (Electronically Signed) Final Date: 08 October 2020 15:41 S
[2020-10-08 06:07] LABS: Slide Review Slide Review Perform
[2020-10-08 06:09] LABS: Absolute Neutrophil 22.8 10^3/cmm (1.4-6.5); Absolute Segmented Neutrophil 13.4 10/cmm (1.6-7.1); Band Neutrophils Absolute 9.4 10^3/cmm (0.0-1.2); Lymphocytes 3 %; Monocytes Absolute 0.5 10^3/cmm (0.1-0.6); Platelet Estimate Decreased (Normal); Segmented Neutrophils 56 %; Total Cells Counted 100 (0-100)
[2020-10-08 06:17] LABS: Eosinophils 0 %
[2020-10-08] MEDS: acetaminophen 325 mg Tablet 650 MG PO ×3 (06:29→18:25)
--- NOTE | 2020-10-08 07:51 | PC.NURSE ---
Dr. Johnston notified of patient request of regular diet, new order received to restart long term diet, rodolfo santos called and confirmed diet was regular, placed new order.
[2020-10-08] MEDS: potassium chloride ER 20 mEq Tablet PO (08:13)
[2020-10-08] MEDS: gabapentin 300 mg Capsule PO ×3 (08:13→21:19)
[2020-10-08] MEDS: topiramate 25 mg Tablet 50 MG PO ×2 (08:13→17:10)
[2020-10-08] MEDS: lactobacillus 1 Tablet 1 TAB PO ×2 (08:14→17:10)
[2020-10-08] MEDS: oxybutynin 5 mg Tablet PO ×2 (08:14→17:10)
[2020-10-08] MEDS: duloxetine 60 mg Capsule PO (08:14)
[2020-10-08] MEDS: pantoprazole DR 40 mg Tablet PO (08:14)
[2020-10-08] MEDS: aspirin 81 mg EC Tablet PO (08:14)
--- NOTE | 2020-10-08 09:18 | PC.NURSE ---
Patient reports pain 10/10 to lower back chronic pain, PRN tylenol given per doctors orders, see MAR for further details.
--- NOTE | 2020-10-08 10:15 | CT_ITS ---
WS: [id number] CT ABDOMEN PELVIS TECHNIQUE: Noncontrast CT of the abdomen and pelvis with coronal and sagittal reformatted images. CLINICAL INFORMATION: obstructive pyelonephritis COMPARISON: CT 9 14,016 DLP: 1243.[address] scans at [facility] use at least one of these dose optimization techniques: automat ed exposure control; mA and/or kV adjustment per patient size (includes targeted exams where dose is matched to clinical indication); or iterative reconstruction. FINDINGS: Noncontrast liver is normal. Cholecystectomy clips. Subsegmental atelectasis in the right lower lobe. Small splenule. Normal GE junction. Fatty atrophy of the pancreas. Adrenal glands are normal. No obs tructing renal or ureteral calculi. No hydronephrosis. Normal caliber abdominal aorta. Mild aortic ca lcification. Mild perinephric edema can be seen with renal insufficiency. Murray catheter. Fecal distention of the rectum. A few sigmoid diverticuli. Diverticulosis. No evidenc e of high-grade small or large bowel obstruction. No periaortic lymphadenopathy. No pelvic lymphadeno lizbet. Lumbar scoliosis. Disc space narrowing throughout the lumbar spine. Prior postoperative change s laminectomy defects lower lumbar spine. CT/CT kidney stone [id number] IMPRESSION: 1. No obstructing renal or ureteral calculi. No hydronephrosis in either kidne y. 2. Murray catheter in place. 3. Rectal constipation. 4. Sigmoid diverticulosis. No evidence of acute diverticulitis. 5. Cholecystectomy clips. 6. Subsegmental atelectasis right lower lobe. 7. Lumbar scoliosis.
[2020-10-08] MEDS: TRAMadol 50 mg Tablet 100 MG PO ×2 (10:29→18:24)
--- NOTE | 2020-10-08 15:56 | PM.PN ---
Subjective Subjective: Interval history: Patient is much more alert awake and oriented today. She is able to correctly tell me her name age, fact that she is in the hospital. Requesting resuming all of her home medications. Much more energetic today. Overnight noted to have T-max of 100.9 Fahrenheit. Leukocytosis also increased to 24. Medications: Reviewed: Yes Vitals/I&O/Wt Last Vital Signs Temp 98.4 F 10/08/20 11:38 Pulse 89 10/08/20 11:38 Resp 17 10/08/20 11:38 BP 127/72 10/08/20 11:38 Pulse Ox 95 10/08/20 11:38 10/08/20 10/08/20 10/08/20 06:59 14:59 22:59 Intake Total 831.667 / 2514.333 916.25 / 916.25 Output Total 350 / 1800 1700 / 1700 Balance 481.667 / 714.333 -1700 / -1700 916.25 / -783.75 Weight last 48 hrs Weight 74.843 kg Physical Exam Narrative: EXAM NARRATIVE: GEN: Awake, alert and oriented, no acute distress CVS: S1S2 N RS: CTA B/L Abd: Soft, nt/nd , bs+ OVERLOCK SEWING MACHINE OPERATOR: no focal neuro deficits Urinary Catheter Management^: Murray: Cath Placed During This Visit: yes Reason for Continuing Indwelling Catheter: Acute Urinary Retention or Obstruction Urinary Catheter Date of Insertion: 10/07/20 Data : 10/08/20 04:48 10/08/20 04:48 Micro: Microbiology 10/07/20 00:30 Urine Culture - Preliminary Urine,Clean Catch Gram Negative Rods A&P Assessment and plan (1) Sepsis: As evidenced by tachycardia, elevated WBC, lactic acidosis, transient hypoxemia, altered mental status. Currently with stable blood pressures and improving mentation with hydration. Status: Acute Qualifiers: Sepsis type: sepsis due to unspecified organism Sepsis acute organ dysfunction status: without acute organ dysfunction Qualified Code(s): A41.9 - Sepsis, unspecified organism (2) UTI (urinary tract infection): In a patient with longstanding urge incontinence. enuresis, urinary frequency. Last cultures with pansensitive e coli. Urine with + WBCs and RBCs, 3+ bacteria, though negative nitrates and leukocyte esterase. Continue ceftriaxone empirically, await urine cultures Preliminary urine culture showing gram-negative rods. Obtain CT of the abdomen today given sudden increase in white blood cell count and ongoing fevers, suspect obstructive pyelonephritis may be contributing. 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 transplanted heart: [place] heart Qualified Code(s): I25.10 - Atherosclerotic heart disease of [place] coronary artery without angina pectoris (5) Gait instability: Status: Chronic (6) Elevated d-dimer: negative for PE on CTA chest, LE duplex negative CT head: no acute abnormalities Status: Acute (7) Encephalopathy: This is now resolved. Patient is back to baseline mentation. It was toxic metabolic encephalopathy from sepsis. Status: Acute Additional A&P Information DVt ppx: lovenox Attestations Medical Necessity Statement*: Needs ongoing admission for sepsis, IV antibiotic management, awaiting culture results Coding Level of Care Code Acute Music Director for Chg Fwd Diagnoses Sepsis A41.9 Sepsis type: sepsis due to unspecified organism Sepsis acute organ dysfunction status: without acute organ dysfunction UTI (urinary tract infection) N10 Urinary tract infection type: acute pyelonephritis Opioid dependence F11.20 Substance use status: uncomplicated Atherosclerotic heart disease of [place] coronary artery without angina pectoris I25.10 [place] vs. transplanted heart: [place] heart Gait instability R26.81 Elevated d-dimer R79.89 Encephalopathy G93.40
--- NOTE | 2020-10-08 16:14 | PC.NURSE ---
Patient refusing to sit up in chair for supper, discussed plan of care and encouraged to ambulate with assistance, verbalized understanding. Call light in reach, side rails up X2.
[2020-10-08] MEDS: atorvastatin 40 mg Tablet 20 MG PO (21:19)
[2020-10-08] MEDS: trazodone 100 mg Tablet PO (21:33)
[2020-10-09] VITALS (8 sets, daily range): BP systolic 122–147; BP diastolic 59–81; PULSE 72–78; RESP 17–22; TEMP 36.8–37; O2SAT 92–95
[2020-10-09] MEDS: cefTRIAXone 1,000 MG in sodium chloride 0.9% (plus) 50 ML 100 MG IV (00:54)
[2020-10-09] MEDS: enoxaparin 40 mg/0.4 mL Syringe SUBCUT (05:24)
[2020-10-09] MEDS: sodium chlor 0.9% + KCl 20 mEq 20 MEQ/1,000 ML BAG 75 MEQ IV (05:24)
[2020-10-09] MEDS: levothyroxine 75 mcg Tablet PO (05:25)
[2020-10-09 06:56] LABS: Basophils # 0.1 10^3/uL (0.0-0.1); Basophils % 0.6 %; Eosinophils # 0.4 10^3/uL (0.0-0.8); Eosinophils % 2.7 %; Hematocrit 31.4 % (37.0-47.0); Hemoglobin 10.8 g/dL (11.5-15.3); Lymphocytes # 1.1 10^3/uL (0.8-4.8); Lymphocytes % 6.6 %; Mean Corpuscular HGB Conc 34.4 g/dL (30.0-36.0); Mean Corpuscular Hemoglobin 30.4 pg (28.0-34.0); Mean Corpuscular Volume 88.5 fL (81-99); Mean Platelet Volume 10.5 fL (7.4-10.4); Monocytes # 0.6 10^3/uL (0.2-0.9); Monocytes % 3.7 %; Neutrophils # 12.04 10^3/uL (1.8-7.7); Nucleated Red Blood Cells % 0 %; Platelet Count 96 10^3/cmm (130-400); Red Blood Count 3.55 10^6/uL (4.1-5.3); Red Cell Distribution Width 13.3 % (12.1-15.1); White Blood Count 15.8 10^3/uL (4.0-10.0)
--- NOTE | 2020-10-09 07:28 | PC.NURSE ---
patient refuses to sit up in chair for breakfast, states, I didn't sleep good I am not going to sit in a chair. discussed plan of care including up to chair out of bed, verbalizes understanding.
[2020-10-09 07:50] LABS: Alanine Aminotransferase 37 U/L (0-33); Alkaline Phosphatase 102 IU/L (35-105); Anion Gap 13.1 (5-19); Aspartate Amino Transferase 30 U/L (0-32); Blood Urea Nitrogen 11 mg/dL (8-23); Calcium 8.3 mg/dL (8.5-10.5); Carbon Dioxide 20 mmol/L (22-29); Chloride 107 mmol/L (98-107); Globulin 2.5 g/dL (1.3-4.6); Glucose 84 mg/dL (65-115); Osmolality Calculated 281 mOsm/kg (285-295); Potassium 4.1 mmol/L (3.5-5.1); Sodium 136 mmol/L (136-145); Total Bilirubin 0.3 mg/dL (0.15-1.2); Total Protein 5.5 g/dL (6.6-8.7)
[2020-10-09] MEDS: TRAMadol 50 mg Tablet 100 MG PO (08:25)
[2020-10-09] MEDS: acetaminophen 325 mg Tablet 650 MG PO (08:25)
[2020-10-09] MEDS: aspirin 81 mg EC Tablet PO (08:25)
[2020-10-09] MEDS: polyethylene glycol 3350 Pkt 17 gm PO (08:25)
[2020-10-09] MEDS: pantoprazole DR 40 mg Tablet PO (08:25)
[2020-10-09] MEDS: duloxetine 60 mg Capsule PO (08:25)
[2020-10-09] MEDS: topiramate 25 mg Tablet 50 MG PO ×2 (08:25→17:38)
[2020-10-09] MEDS: gabapentin 300 mg Capsule PO ×3 (08:26→20:31)
[2020-10-09] MEDS: potassium chloride ER 20 mEq Tablet PO (08:26)
[2020-10-09] MEDS: lactobacillus 1 Tablet 1 TAB PO ×2 (08:26→17:38)
[2020-10-09] MEDS: oxybutynin 5 mg Tablet PO ×2 (08:26→17:38)
[2020-10-09 08:38] LABS: Neutrophils % 86.7 %
[2020-10-09] MEDS: ondansetron 2 mg/ML SDV 2 mL 4 MG IVP (08:38)
[2020-10-09 08:41] LABS: Slide Review Slide Review Perform
--- NOTE | 2020-10-09 10:59 | PC.CHAP ---
Pastoral Care Encounter/Spiritual Assessment Type of Contact [] Declined color control operator visit [] Patient/Family/Request visit [] Outpatient visit [] Follow-up visit [] Physician referral [] Code/Alert [XX] Routine visit [] Staff referral [] Actively dying [] Patient sleeping [] Family support [] [] Out of room [] Palliative care [] [] Receiving care in room [] Pre-surgical visit [] Trauma [] Long length of stay [] ICU visit [] Other: Relational/Emotional Strength [XX] Patient feels connected with others/family/visitors/staff [] Distress [] Loneliness/isolation [] Abandonment Spirituality of Patient [XX] Person of [place] [] Attends Spiritism of their [place] [XX] Believes in Prayer [XX] Reads Bible or Holiness materials [] There are Spiritual issues to be addressed Web Design Instructor Interventions [XX] Prayer [XX] Active listening [XX] Non-anxious presence [] Spiritual/emotional support [] Crisis/trauma care [] Spiritual counseling [] Bereavement support [] Provided bereavement packet [XX] Provided Bible/devotional materials [] Provided toy/stuffed animal, coloring book to patient or family member [] Provided Communion [] Anointing/[place] [] Salvation [] Completed spiritual assessment [] Other: Impact on Illness or Injury [] Angry [] Fearful [] Anxious [] Often cries [] Exhaustion [] Unable to work [] Unable to attend shinto [] Unable to walk/stand [] Unable to read [] Unable to drive [] Unable to eat/drink [] Unable to sleep [] Unable to be with family [] Patient intubated [] Other: Summary: Pt does not know why she is in the hospital stating that she remembers falling asleep in her room at the al[facility] and waking up here. She hopes to receive some information / answers today. She shares a suite at the alf with her who is bedridden. She's in touch with her son from [place]. Offered her Daily Bread and prayer; she readily accepted both stating that the Daily Bread was an answer to her prayers. Time spent with patient: 12 mins
[2020-10-09] MEDS: cefepime 2,000 MG in sodium chloride 0.9% (plus) 50 ML 100 MG IV ×2 (12:31→23:36)
--- NOTE | 2020-10-09 14:37 | PM.PN ---
Subjective Subjective: Interval history: Patient remains alert and awake, mentation is much improved, appears to be back at baseline. Urine culture today shows presence of Klebsiella and Enterobacter. She has no new complaints. Has remained afebrile over the last 24 hours, leukocytosis is trending down. Medications: Reviewed: Yes Vitals/I&O/Wt Last Vital Signs Temp 98.6 F 10/09/20 12:00 Pulse 73 10/09/20 12:00 Resp 17 10/09/20 12:00 BP 129/64 10/09/20 12:00 Pulse Ox 92 10/09/20 12:00 10/08/20 10/09/20 10/09/20 22:59 06:59 14:59 Intake Total 1516.25 / 1516.25 1050 / 2566.25 1010 / 1010 Output Total 850 / 2550 1575 / 4125 1350 / 1350 Balance 666.25 / -1033.75 -525 / -1558.75 -340 / -340 Physical Exam Narrative: EXAM NARRATIVE: GEN: Awake, alert and oriented, no acute distress CVS: S1S2 N RS: CTA B/L Abd: Soft, nt/nd , bs+ INSPECTOR COATED FABRICS: no focal neuro deficits Urinary Catheter Management^: Murray: Cath Placed During This Visit: yes, but has since been removed by the nurse Reason for Continuing Indwelling Catheter: Decision to DC Catheter Urinary Catheter Date of Insertion: 10/07/20 Date Urinary Catheter Removed: 10/09/20 Time Urinary Catheter Discontinued: 11:47 Data : 10/09/20 06:00 10/09/20 06:00 Micro: Microbiology 10/07/20 00:30 Urine Culture - Final Urine,Clean Catch Klebsiella pneumoniae Enterobacter aerogenes Microbiology 10/07/20 00:30 Urine,Clean Catch Urine Culture - Final Klebsiella pneumoniae Enterobacter aerogenes 10/07/20 00:30 Stool - Stool Aspirate C.difficile Toxin B Gene (PCR) - Final CT Abd/Pel: I personally reviewed and interpreted this imaging study as follows: My impression: Laboratory Results WBC 15.8 10^3/uL (4.0-10.0) H 10/09/20 06:00 RBC 3.55 10^6/uL (4.1-5.3) L 10/09/20 06:00 Hgb 10.8 g/dL (11.5-15.3) L 10/09/20 06:00 Hct 31.4 % (37.0-47.0) L 10/09/20 06:00 MCV 88.5 fL (81-99) 10/09/20 06:00 MCH 30.4 pg (28.0-34.0) 10/09/20 06:00 MCHC 34.4 g/dL (30.0-36.0) 10/09/20 06:00 RDW 13.3 % (12.1-15.1) 10/09/20 06:00 Plt Count 96 10^3/cmm (130-400) L 10/09/20 06:00 MPV 10.5 fL (7.4-10.4) H 10/09/20 06:00 Neut % (Auto) 86.7 % 10/09/20 06:00 Lymph % (Auto) 6.6 % 10/09/20 06:00 [place] % (Auto) 3.7 % 10/09/20 06:00 Eos % (Auto) 2.7 % 10/09/20 06:00 Baso % (Auto) 0.6 % 10/09/20 06:00 Neut # (Auto) 12.04 10^3/uL (1.8-7.7) H 10/09/20 06:00 Lymph # (Auto) 1.1 10^3/uL (0.8-4.8) 10/09/20 06:00 [place] # (Auto) 0.6 10^3/uL (0.2-0.9) 10/09/20 06:00 Eos # (Auto) 0.4 10^3/uL (0.0-0.8) 10/09/20 06:00 Baso # (Auto) 0.1 10^3/uL (0.0-0.1) 10/09/20 06:00 Nucleated RBC % (auto) 0 % 10/09/20 06:00 Total Counted 100 (0-100) 10/08/20 04:48 Atypical Lymphs % 0.0 % (0-5) 10/08/20 04:48 Absolute Neutrophils 22.8 10^3/cmm (1.4-6.5) H 10/08/20 04:48 Segmented Neutrophils 56 % 10/08/20 04:48 Abs Segm Neuts (Man) 13.4 10/cmm (1.6-7.1) H 10/08/20 04:48 Band Neutrophils 39.0 % 10/08/20 04:48 Abs Band Neuts (Man) 9.4 10^3/cmm (0.0-1.2) H 10/08/20 04:48 Lymphocytes (Manual) 3 % 10/08/20 04:48 Monocytes (Manual) 2.0 % 10/08/20 04:48 Absolute Monocytes 0.5 10^3/cmm (0.1-0.6) 10/08/20 04:48 Eosinophils (Manual) 0 % 10/08/20 04:48 Absolute Eosinophils 0.0 10^3/cmm (0.0-0.7) 10/08/20 04:48 Basophils (Manual) 0.0 % 10/08/20 04:48 Absolute Basophils 0.0 10^3/cmm (0.0-0.2) 10/08/20 04:48 Nucleated RBCs # 0.0 /100WBC 10/09/20 06:00 Platelet Estimate Decreased (Normal) L 10/08/20 04:48 PT 15.30 SECONDS (12.1-14.9) H 10/07/20 00:20 INR 1.17 (0.8-1.2) 10/07/20 00:20 D-Dimer >= 20.00 ug/mIFEU (0-0.59) H 10/07/20 00:20 Specimen Type Arterial 10/07/20 00:45 Sample Site Radial, right 10/07/20 00:45 ABG pH 7.42 (7.35-7.45) 10/07/20 00:45 ABG pCO2 38.7 mmHg (35-45) 10/07/20 00:45 ABG pO2 70.0 mmHg (80.0-100.0) L 10/07/20 00:45 ABG HCO3 25.2 mmol/L (22-26) 10/07/20 00:45 ABG O2 Saturation 95.2 10/07/20 00:45 ABG Base Excess 0.8 mmol/L (-2.0-2.0) 10/07/20 00:45 Brenton Test N/a 10/07/20 00:45 A-a O2 Gradient 10.8 mmHg (5-10) H 10/07/20 00:45 Hematocrit 45.1 % (37-47) 10/07/20 00:45 Hgb O2 Saturation 93.5 % (95-100) L 10/07/20 00:45 Carboxyhemoglobin 0.8 %THgb (0.4-20.1) 10/07/20 00:45 Methemoglobin 1.0 % (0.4-1.5) 10/07/20 00:45 Total Hemoglobin 14.7 g/dL (12-16) 10/07/20 00:45 Sodium 142.0 mmol/L (131-143) 10/07/20 00:45 Potassium 3.0 mmol/L (3.5-5.0) L 10/07/20 00:45 Glucose 159.0 mg/dL (70-115) H 10/07/20 00:45 Ionized Calcium 1.1 mmol/L (1.1-1.4) 10/07/20 00:45 O2 Delivery Device Nc 10/07/20 00:45 O2 Liters/Min 2.0 % 10/07/20 00:45 FiO2 28.0 % 10/07/20 00:45 Credit Risk Analytics Manager ID [email or web address] 10/07/20 00:45 Sodium 136 mmol/L (136-145) 10/09/20 06:00 Potassium 4.1 mmol/L (3.5-5.1) 10/09/20 06:00 Chloride 107 mmol/L (98-107) 10/09/20 06:00 Carbon Dioxide 20 mmol/L (22-29) L 10/09/20 06:00 Anion Gap 13.1 (5-19) 10/09/20 06:00 BUN 11 mg/dL (8-23) 10/09/20 06:00 Creatinine 0.5 mg/dL (0.5-0.9) 10/09/20 06:00 GFR Calculation Not Reportable 10/09/20 06:00 Glucose 84 mg/dL (65-115) 10/09/20 06:00 Calculated Osmolality 281 mOsm/kg (285-295) L 10/09/20 06:00 Lactic Acid 3.1 mmol/L (0.5-2.2) H 10/07/20 00:20 Lactic Acid (Sepsis) 2.6 mmol/L (0.5-2.2) H 10/07/20 04:17 Calcium 8.3 mg/dL (8.5-10.5) L 10/09/20 06:00 Magnesium 1.6 mg/dL (1.7-2.3) L 10/07/20 00:20 Total Bilirubin 0.3 mg/dL (0.15-1.2) 10/09/20 06:00 AST 30 U/L (0-32) 10/09/20 06:00 ALT 37 U/L (0-33) H 10/09/20 06:00 Alkaline Phosphatase 102 IU/L (35-105) 10/09/20 06:00 Creatine Kinase 80 U/L (26-192) 10/07/20 00:20 Troponin T Baseline 22 ng/L (0-10) H 10/07/20 08:16 Troponin T 120 Minute 22.36 ng/L (0-10) H 10/07/20 10:53 Delta Troponin T 0.36 ABS# (0-10) 10/07/20 10:53 Troponin T Hi Sens 6Hr 19.43 ng/L (0-10) H 10/07/20 15:45 Troponin T Hi Sens 6Hr Delta -2.57 ng/L (0-12) L 10/07/20 15:45 Total Protein 5.5 g/dL (6.6-8.7) L 10/09/20 06:00 Albumin 3.0 g/dL (3.5-5.2) L 10/09/20 06:00 Globulin 2.5 g/dL (1.3-4.6) 10/09/20 06:00 Lipase 8 U/L (13-60) L 10/07/20 00:20 TSH 0.90 uIU/mL (0.27-4.20) 10/08/20 04:48 Urine Color Yellow (Yellow) 10/07/20 00:30 Urine Appearance Cloudy (CLEAR) 10/07/20 00:30 Urine pH 5 (5-7) 10/07/20 00:30 Ur Specific [place] 1.010 (1.005-1.030) 10/07/20 00:30 Urine Protein Neg (Negative) 10/07/20 00:30 Urine Glucose (UA) Norm (Normal) 10/07/20 00:30 Urine Ketones Negative (Negative) 10/07/20 00:30 Urine Blood 3+ (Negative) H 10/07/20 00:30 Urine Nitrate Negative (Negative) 10/07/20 00:30 Urine Bilirubin Neg (Negative) 10/07/20 00:30 Urine Urobilinogen Norm mg/dL (Negative) 10/07/20 00:30 Ur Leukocyte Esterase Negative (Negative) 10/07/20 00:30 Urine RBC >100 /hpf (0-2) H 10/07/20 00:30 Urine WBC >100 /hpf (0-5) H 10/07/20 00:30 Ur Squamous Epith Cells 0-4 /hpf (0-5) H 10/07/20 00:30 Amorphous Sediment Not Reportable 10/07/20 00:30 Urine Bacteria 3+ /hpf (NONE) H 10/07/20 00:30 Urine Mucus Trace /hpf 10/07/20 00:[address] 10/07/20 00:13 IMPRESSION: 1. No acute intracranial abnormality. 2. Stable moderate dilation of the lateral ventricles, greater than expected for the degree of atrophy. No change since 02/27/2018. Radiation Dose CTDIVOL = (mGy): DLP = 706.25 (mGy-cm) Chest CTA 10/07/20 01:13 IMPRESSION: 1. No large pulmonary embolus. Poor detail of multiple small pulmonary arteries. 2. Probable stranding in the left anterior pararenal fat in the upper abdomen, significance unclear. 3. Patchy stranding and minimal haziness in the lungs consistent with atelectasis. Other findings detailed above. Radiation Dose CTDIVOL = (mGy): DLP = 468.47 (mGy-cm) Abdomen/Pelvis CT 10/08/20 10:15 IMPRESSION: 1. No obstructing renal or ureteral calculi. No hydronephrosis in either kidney. 2. Murray catheter in place. 3. Rectal constipation. 4. Sigmoid diverticulosis. No evidence of acute diverticulitis. 5. Cholecystectomy clips. 6. Subsegmental atelectasis right lower lobe. 7. Lumbar scoliosis. A&P Assessment and plan (1) Sepsis: Sepsis is now resolved. As evidenced by tachycardia, elevated WBC, lactic acidosis, transient hypoxemia, altered mental status. Currently with stable blood pressures and improving mentation with hydration. Status: Acute Qualifiers: Sepsis type: sepsis due to unspecified organism Sepsis acute organ dysfunction status: without acute organ dysfunction Qualified Code(s): A41.9 - Sepsis, unspecified organism (2) UTI (urinary tract infection): In a patient with longstanding urge incontinence. enuresis, urinary frequency. Urine culture today noted to have 2 organisms including Klebsiella pneumonia and Enterobacter, demonstrating resistance to ceftriaxone. In keeping with the available sensitivity results, discontinue ceftriaxone and start cefepime 2 g IV every 12 hours. Fortunately both isolates susceptible to fluoroquinolones, will plan to discharge patient on ciprofloxacin, total duration to be [address] of the abdomen pelvis performed yesterday without any signs of obstructive pyelonephritis. Discontinue Murray catheter today Continue to trend leukocytosis and fever curve, both are improving today. Status: Acute Qualifiers: Urinary tract infection type: acute pyelonephritis Qualified Code(s): N10 - Acute pyelonephritis (3) Opioid dependence: Status: Chronic Qualifiers: Substance use status: uncomplicated Qualified Code(s): F11.20 - Opioid dependence, uncomplicated (4) Atherosclerotic heart disease of [place] coronary artery without angina pectoris: Status: Chronic Qualifiers: [place] vs. transplanted heart: [place] heart Qualified Code(s): I25.10 - Atherosclerotic heart disease of [place] coronary artery without angina pectoris (5) Gait instability: Status: Chronic (6) Elevated d-dimer: negative for PE on CTA chest, LE duplex negative CT head: no acute abnormalities Status: Acute (7) Encephalopathy: This is now resolved. Patient is back to baseline mentation. It was toxic metabolic encephalopathy from sepsis. Status: Acute Additional A&P Information DVt ppx: lovenox Call was placed to patient's listed contact that is his son, however it was answered by another relative. Left message asking son to call us back for updates. Attestations Medical Necessity Statement*: Susceptibility results showing resistance to ceftriaxone, switch therapy to IV cefepime today. Trend leukocytosis and fever curve, if remains improving over the next 24 hours will likely discharge with oral fluoroquinolones. Coding Level of Care Code Acute Manufacturing Machine Operator for [facility] Fwd Diagnoses Sepsis A41.9 Sepsis type: sepsis due to unspecified organism Sepsis acute organ dysfunction status: without acute organ dysfunction UTI (urinary tract infection) N10 Urinary tract infection type: acute pyelonephritis Opioid dependence F11.20 Substance use status: uncomplicated Atherosclerotic heart disease of [place] coronary artery without angina pectoris I25.10 [place] vs. transplanted heart: [place] heart Gait instability R26.81 Elevated d-dimer R79.89 Encephalopathy G93.40
[2020-10-09] MEDS: atorvastatin 40 mg Tablet 20 MG PO (20:31)
[2020-10-10] VITALS: BP 131/72; PULSE 78; RESP 16; TEMP 36.6; O2SAT 91
[2020-10-10 04:00] VITALS: BP 129/66; PULSE 78; RESP 20; TEMP 37.1; O2SAT 92
[2020-10-10] MEDS: levothyroxine 75 mcg Tablet PO (05:53)
[2020-10-10] MEDS: enoxaparin 40 mg/0.4 mL Syringe SUBCUT (05:53)
[2020-10-10 08:00] VITALS: BP 135/79; PULSE 76; PULSE 81; RESP 17; TEMP 36.7; O2SAT 94
[2020-10-10] MEDS: aspirin 81 mg EC Tablet PO (09:11)
[2020-10-10] MEDS: topiramate 25 mg Tablet 50 MG PO (09:11)
[2020-10-10] MEDS: lactobacillus 1 Tablet 1 TAB PO (09:11)
[2020-10-10] MEDS: oxybutynin 5 mg Tablet PO (09:11)
[2020-10-10] MEDS: polyethylene glycol 3350 Pkt 17 gm PO (09:12)
[2020-10-10] MEDS: fentaNYL 50 mcg Patch 1 PATCH TRANSDERMA (09:12)
[2020-10-10] MEDS: gabapentin 300 mg Capsule PO ×2 (09:12→16:17)
[2020-10-10] MEDS: duloxetine 60 mg Capsule PO (09:12)
[2020-10-10] MEDS: pantoprazole DR 40 mg Tablet PO (09:12)
--- NOTE | 2020-10-10 10:04 | PC.SOCIAL ---
IMM Update Pg.2 of IMM updated and reviewed with patient's who verbalized understanding. Copy provided.
[2020-10-10] MEDS: cefepime 2,000 MG in sodium chloride 0.9% (plus) 50 ML 100 MG IV (11:32)
--- NOTE | 2020-10-10 11:44 | PM.DCS ---
Discharge Providers Date of Admission: 10/07/20 04:43 Date of Discharge: October 10, 2020 Attending Provider at Admission: Rosie Jacome MD Attending Provider at Discharge: Radha Johnston MD Primary Care Provider: Kim Kemp MD Diagnoses at Discharge Discharge Diagnosis (1) Sepsis: Status: Acute Qualifiers: Sepsis acute organ dysfunction status: without acute organ dysfunction Sepsis type: sepsis due to unspecified organism Qualified Code(s): A41.9 - Sepsis, unspecified organism (2) UTI (urinary tract infection): Status: Acute Qualifiers: Urinary tract infection type: acute pyelonephritis Qualified Code(s): N10 - Acute pyelonephritis (3) Opioid dependence: Status: Chronic Qualifiers: Substance use status: uncomplicated Qualified Code(s): F11.20 - Opioid dependence, uncomplicated (4) Atherosclerotic heart disease of [place] coronary artery without angina pectoris: Status: Chronic Permanent problem details: PCI 2007 to RCA and LAD Qualifiers: [place] vs. transplanted heart: [place] heart Qualified Code(s): I25.10 - Atherosclerotic heart disease of [place] coronary artery without angina pectoris (5) Gait instability: Status: Chronic (6) Elevated d-dimer: Status: Acute (7) Encephalopathy: Status: Acute Reason for Visit Reason for Visit: vomiting Hospital Course Hospital Course Shari Mcclelland is a 79 year old female who presents from [place] with vomiting and change in mental status. She vomited multiple times. No complaints of alteration in bowel habits. On work-up she was found to have sepsis upon initial presentation secondary to urinary tract infection. Possibility of pyelonephritis could not be excluded as stranding was seen around the left kidney of uncertain significance. Patient's mental status improved significantly after being started on antibiotics and IV hydration. Initially she received empiric antibiotic treatment with ceftriaxone, this was changed to cefepime once cultures revealed presence of Klebsiella and Enterobacter. Both of these isolates are susceptible to fluoroquinolones, and patient is now being discharged in stable condition on oral ciprofloxacin 500 twice daily for the next 8 days, to complete total 10 days of appropriate antimicrobial therapy. Blood cultures remain negative to date. Patient has been afebrile for the last 48 hours. White blood cell count has trended down from 24 to 15 at the time of discharge. Recommend checking again in 2 to 3 days to ensure resolution. Murray catheter has been discontinued, no signs of urinary retention. Patient's mental status is back to baseline. He is being discharged back to shelter. Physical Exam Narrative: EXAM NARRATIVE: GEN: Awake, alert and oriented, no acute distress CVS: S1S2 N RS: CTA B/L Abd: Soft, nt/nd , bs+ PROMOTIONS DIRECTOR: no focal neuro deficits Urinary Catheter Management^: Murray: Cath Placed During This Visit: yes, but has since been removed by the nurse Reason for Continuing Indwelling Catheter: Decision to DC Catheter Urinary Catheter Date of Insertion: 10/07/20 Date Urinary Catheter Removed: 10/09/20 Time Urinary Catheter Discontinued: 11:47 Discharge Data Data Completed and Pending: Completed Studies During Hospitalization Category Date Time Status CT angio chest PE protcl 57042 Urge nt Cat Scan 10/07/20 01:[address] head wo con* 7 0450 Urgent Cat Scan 10/07/20 00:[address] kidney stone 7 1186 Routine Cat Scan 10/08/20 10:15 [place] [address] Routin e Ultrasound 10/08/20 06:00 Completed Vitals: Last Vital Signs Temp 98.1 F 10/10/20 08:00 Pulse 76 10/10/20 08:00 Resp 17 10/10/20 08:00 BP 135/79 10/10/20 08:00 Pulse Ox 94 10/10/20 08:00 Discharge Plan Discharge Patient Disposition: Xfer SNF Condition: Stable Prescriptions: New Cipro 500 mg tablet 500 mg PO BID 8 Days Qty: 16 RF: 0 Continued levothyroxine 25 mcg capsule 25 mcg PO DAILY@05 RF: 0 omeprazole 20 mg capsule,delayed release(DR/EC) 20 mg PO DAILY@08 RF: 0 acetaminophen 325 mg capsule 650 mg PO Q6H RF: 0 oxybutynin chloride 10 mg tablet extended release 24hr 20 mg PO DAILY@08 RF: 0 aspirin [Adult Aspirin Regimen] 81 mg tablet,delayed release (DR/EC) 81 mg PO DAILY@08 RF: 0 potassium chloride 10 mEq capsule, extended release 10 meq PO DAILY@08 RF: 0 pravastatin 10 mg tablet 5 mg PO DAILY@21 RF: 0 trazodone 100 mg tablet 100 mg PO DAILY@21 PRN (Reason: Sleep) RF: 0 duloxetine [Cymbalta] 60 mg capsule,delayed release(DR/EC) 60 mg PO DAILY@08 RF: 0 fentanyl 50 mcg/hr patch 72 hour 1 patch TRANSDERMA Q72H 30 Days Qty: 10 RF: 0 methocarbamol [Robaxin-750] 750 mg tablet 375 mg PO TID PRN (Reason: muscle spasm) Qty: 45 RF: 1 tizanidine 2 mg Tablet 2 mg PO TID PRN (Reason: Muscle Spasm) RF: 0 Miralax 17 gram Powder In Packet 8.5 g PO DAILY@08 RF: 0 Zofran 4 mg Tablet 4 mg PO TID PRN (Reason: Nausea) RF: 0 Senokot-S 8.6-50 mg Tablet 1 tab PO BID PRN (Reason: Constipation) RF: 0 Milk of Magnesia 400 mg/5 mL Suspension 30 ml PO DAILY PRN (Reason: Constipation) RF: 0 Dulcolax (bisacodyl) 10 mg Suppository 10 mg [place] DAILY PRN (Reason: Constipation) RF: 0 Fleet Enema 19-7 gram/118 mL Enema 118 ml [place] DAILY PRN (Reason: Constipation) RF: 0 fluticasone propionate 50 mcg/actuation [place],Suspension 2 spray INTRANASAL DAILY@08 RF: 0 cyanocobalamin (vitamin B-12) 25 mcg Tablet 250 mcg PO DAILY@08 RF: 0 Nyamyc 100,000 unit/gram powder See Rx Instructions .ROUTE .COMPLEX RF: 0 Changed gabapentin 600 mg tablet 300 mg PO TID Qty: 0 RF: 0 tramadol 50 mg tablet 100 mg PO Q6H PRN (Reason: pain) 30 Days Qty: 240 RF: 0 Discharge Orders: Discharge Order (Routine); Ordered 10/10/20 Ordered By: Radha Johnston Other Ambulatory Orders: Complete Blood Count w/Auto (Routine) Timeframe: 2 Days Location: Determined by Patient Ordered By: Radha Johnston Discharge Diet: Usual diet Discharge Activity: Resume usual activity and As per PT/OT instructions Discharge Attestations Time Spent in Discharge Care*: greater than 30 min Specific Discharge Activities: educating patient, educating and/or supporting family/caregiver and discussing with foster care case manager/social workers/dc planners Status at Discharge: Overall status at discharge: patient is back to baseline Quality Metrics Clinical Quality Measures During this hospital stay, did patient experience: None Coding Level of Care Code Acute [employer]er [facility] for [facility] Fwd Diagnoses Sepsis A41.9 Sepsis acute organ dysfunction status: without acute organ dysfunction Sepsis type: sepsis due to unspecified organism UTI (urinary tract infection) N10 Urinary tract infection type: acute pyelonephritis Opioid dependence F11.20 Substance use status: uncomplicated Atherosclerotic heart disease of [place] coronary artery without angina pectoris I25.10 [place] vs. transplanted heart: [place] heart Gait instability R26.81 Elevated d-dimer R79.89 Encephalopathy G93.40
[2020-10-10 12:00] VITALS: BP 136/51; PULSE 81; RESP 17; TEMP 36.9; O2SAT 95
[2020-10-10 15:58] VITALS: BP 159/89; PULSE 79; RESP 17; TEMP 37; O2SAT 96
--- NOTE | 2020-10-10 17:01 | PC.NURSE ---
Christa and J came and got her.
[2020-10-10 17:42] VITALS: BP 142/82; PULSE 76; RESP 17; TEMP 37; O2SAT 95
== END 2020-10-10 17:05 | disposition skilled nursing facility (03) | DRG 871 ==
LOC: ER 10-07 00:17 → MEDSURG 10-07 05:00
PROVIDERS: Admitting Provider Hospitalist; Emergency Provider Family Medicine; PCP Family Medicine; Visit Provider Student in an Organized Health Care Education/Training Program
DX: A41.9 Sepsis, unspecified organism (principal); G92 Toxic encephalopathy; N10 Acute pyelonephritis; N39.0 Urinary tract infection, site not specified; F11.20 Opioid dependence, uncomplicated; E87.2 Acidosis; Z86.16 Personal history of COVID-19; F41.8 Other specified anxiety disorders; I25.10 Atherosclerotic heart disease of native coronary artery without angina pectoris; Z95.5 Presence of coronary angioplasty implant and graft; I10 Essential (primary) hypertension; M47.896 Other spondylosis, lumbar region; M47.897 Other spondylosis, lumbosacral region; F03.90 Unspecified dementia, unspecified severity, without behavioral disturbance, psychotic disturbance, mood disturbance, and anxiety; F32.9 Major depressive disorder, single episode, unspecified; E78.5 Hyperlipidemia, unspecified; M79.7 Fibromyalgia; K21.9 Gastro-esophageal reflux disease without esophagitis; E03.9 Hypothyroidism, unspecified; G47.33 Obstructive sleep apnea (adult) (pediatric); M81.0 Age-related osteoporosis without current pathological fracture; R32 Unspecified urinary incontinence; Z96.652 Presence of left artificial knee joint; Z79.82 Long term (current) use of aspirin; B96.1 Klebsiella pneumoniae [K. pneumoniae] as the cause of diseases classified elsewhere; B96.89 Other specified bacterial agents as the cause of diseases classified elsewhere; R26.89 Other abnormalities of gait and mobility; E87.5 Hyperkalemia
CPT/HCPCS: 12345; 36415; 36600; 51702; 70450; 71275; 74176; 80051; 80053; 81001; 82330; 82550; 82805; 83605; 83690; 83735; 84443; 84484; 85007; 85025; 85378; 85610; 87077; 87086; 87186; 87493; 93005; 93970; 99291; J0692; J0696; J1650; J2405; J3475; J7030; J7040; Q9967

== ENCOUNTER → 2020-11-19 09:11 | Outpatient (BNVA) | payer MEDICARE, OTHER, MEDICAID, SELFPAY | PROVIDERS: PCP Family Medicine; Visit Provider Anesthesiology | DX: M43.06 Spondylolysis, lumbar region (principal); M51.36 Other intervertebral disc degeneration, lumbar region; M47.819 Spondylosis without myelopathy or radiculopathy, site unspecified; M47.817 Spondylosis without myelopathy or radiculopathy, lumbosacral region; Z79.891 Long term (current) use of opiate analgesic | CPT/HCPCS: 99213 ==

== ENCOUNTER → 2021-01-13 09:46 | Outpatient (BNVA) | payer MEDICARE, OTHER, MEDICAID, SELFPAY | PROVIDERS: PCP Family Medicine; Visit Provider Nurse Practitioner | DX: M43.06 Spondylolysis, lumbar region (principal); M51.36 Other intervertebral disc degeneration, lumbar region; M46.1 Sacroiliitis, not elsewhere classified; M47.819 Spondylosis without myelopathy or radiculopathy, site unspecified; Z79.891 Long term (current) use of opiate analgesic | CPT/HCPCS: 99213 ==

== ENCOUNTER → 2021-01-27 08:02 | Outpatient (BNVA) | payer MEDICARE, OTHER, MEDICAID, SELFPAY | PROVIDERS: PCP Family Medicine; Visit Provider Anesthesiology | DX: M51.36 Other intervertebral disc degeneration, lumbar region (principal); M47.817 Spondylosis without myelopathy or radiculopathy, lumbosacral region; Z79.891 Long term (current) use of opiate analgesic | CPT/HCPCS: 62323; J1040; J3490 ==

== ENCOUNTER → 2021-03-08 09:45 | Outpatient (BNVA) | payer MEDICARE, OTHER, MEDICAID, SELFPAY | PROVIDERS: PCP Family Medicine; Visit Provider Nurse Practitioner | DX: M51.36 Other intervertebral disc degeneration, lumbar region (principal); M43.06 Spondylolysis, lumbar region; M47.817 Spondylosis without myelopathy or radiculopathy, lumbosacral region; M46.1 Sacroiliitis, not elsewhere classified; R26.81 Unsteadiness on feet; Z79.891 Long term (current) use of opiate analgesic | CPT/HCPCS: 99213 ==

== ENCOUNTER → 2021-05-03 09:37 | Outpatient (BNVA) | payer MEDICARE, OTHER, MEDICAID, SELFPAY | PROVIDERS: PCP Family Medicine; Visit Provider Nurse Practitioner | DX: M51.36 Other intervertebral disc degeneration, lumbar region (principal); M43.06 Spondylolysis, lumbar region; M47.819 Spondylosis without myelopathy or radiculopathy, site unspecified; Z79.891 Long term (current) use of opiate analgesic | CPT/HCPCS: 99213; 99214 ==

== ENCOUNTER → 2021-05-17 11:15 | Outpatient (BNVA) | payer MEDICARE, OTHER, MEDICAID, SELFPAY | PROVIDERS: PCP Family Medicine; Visit Provider Nurse Practitioner Family | DX: N39.0 Urinary tract infection, site not specified (principal) | CPT/HCPCS: 81003; 87077; 87086; 87184 ==

== ENCOUNTER → 2021-05-31 13:45 | Outpatient (BNVA) | payer MEDICARE, OTHER, MEDICAID, SELFPAY | PROVIDERS: PCP Family Medicine; Visit Provider Anesthesiology | DX: M51.36 Other intervertebral disc degeneration, lumbar region (principal); M43.06 Spondylolysis, lumbar region; M47.817 Spondylosis without myelopathy or radiculopathy, lumbosacral region; Z79.891 Long term (current) use of opiate analgesic | CPT/HCPCS: 99213 ==

== ENCOUNTER → 2021-06-08 14:56 | Outpatient (BNVA) | payer MEDICARE, OTHER, MEDICAID, SELFPAY | PROVIDERS: PCP Family Medicine; Visit Provider Urology | DX: N39.0 Urinary tract infection, site not specified (principal); N39.41 Urge incontinence | CPT/HCPCS: 81003 ==

== ENCOUNTER → 2021-08-16 16:04 | Outpatient (BNVA) | payer MEDICARE, OTHER, MEDICAID, SELFPAY | PROVIDERS: PCP Family Medicine; Visit Provider Urology | DX: N39.0 Urinary tract infection, site not specified (principal); N39.41 Urge incontinence; N94.9 Unspecified condition associated with female genital organs and menstrual cycle; N39.44 Nocturnal enuresis | CPT/HCPCS: 81003; 87086 ==

== ENCOUNTER → 2021-11-14 16:57 | Outpatient (BNVA) | payer MEDICARE, OTHER, MEDICAID, SELFPAY | PROVIDERS: PCP Family Medicine; Visit Provider Urology | DX: N39.41 Urge incontinence (principal); N39.0 Urinary tract infection, site not specified | CPT/HCPCS: 81003; 87086 ==

== ENCOUNTER 2022-12-26 13:21 | Emergency (ER) | payer MEDICARE, OTHER, MEDICAID, SELFPAY ==
[2022-12-26] VITALS (12 sets, daily range): BP systolic 131–208; BP diastolic 91–135; PULSE 81–112; TEMP 36.5; O2SAT 95–98; BMI 33.0
--- NOTE | 2022-12-26 13:22 | CT_ITS ---
WS: [id number] CT HEAD NONCONTRAST HISTORY: Symptoms of acute stroke TECHNIQUE: Contiguous axial imaging performed through the brain in 2.5 mm imaging. Bone and soft tiss ue windows. Sagittal and coronal reformats reviewed. All CT scans at [facility] use at least one of these dose optimization techniques: automated exposure control; mA and/or kV adjustment per pa tient size (includes targeted exams where dose is matched to clinical indication); or iterative recon struction. DLP: 1082.97 mGy-cm. COMPARISON: 10/07/2020 Large acute intraparenchymal hemorrhage centered in the RIGHT basal ganglia with adjacent edema, sulc al effacement and mass effect upon the RIGHT lateral ventricle. Hemorrhage involves the frontal and t emporal lobes and measures 6.9 x 3.1 x 4.9 cm. Approximately 6 mm of midline shift with bowing of the midline structures. Fourth ventricle is normal. Posterior fossa is negative. Ventricles: Mildly dilated ventricles. There is intraventricular extension of the hemorrhage. Blood is best seen within the temporal horn RIGHT lateral ventricle. Paranasal sinuses: As visualized are clear. Mastoid air cells: Well pneumatized. Calvarium and scalp: Skull is intact with no soft tissue edema or swelling. CT/CT head thrombolytic 96683 IMPRESSION: 1. Large acute RIGHT intracranial parenchymal hemorrhage involving the tempora l and frontal lobes with extension into the RIGHT lateral ventricle. Area of he morrhage measures 6.9 x 3.1 x 4.9 cm. 2. 6 mm midline shift to the LEFT. 3. Mild ventriculomegaly with intraventricular extension of blood. Notified Agus Maurice DO at 12/26/2022 1:34 PM.
--- NOTE | 2022-12-26 13:36 | W.ED.NEUROSD ---
HPI - Neuro Symptoms/Deficit General: Stated Complaint: STROKE ALERT Time Seen by Provider: 12/26/22 13:36 History of Present Illness: Patient presents to the ER by EMS from the alf. Stroke alert was called. Approximately 1 hour ago patient had sudden onset left-sided facial drooping word salad and slurring of the speech, left upper extremity left lower extremity severe weakness. Patient does have a history of a stroke with left-sided deficits but nothing since compared to the deficit she has now. Patient has unintelligible speech and cannot give us any history. Onset (ago): hour(s) (1 hour ago) Time: 12:30 Last Observed Normal: 12:30 Timing confirmed by: caregiver Location: speech, right face, dysarthria, left arm and left leg History of same: Yes Severity: severe Quality: weak Relieving factors: none Exacerbating factors: none Context: sudden onset On Anticoagulants: No Review of Systems General: Reports: ROS unobtainable due to medical condition PFS ED PFSH: Medical History Anxiety Atherosclerotic heart disease of [place] coronary artery without angina pectoris PCI 2006 to RCA and LAD Benign essential hypertension Bilateral sacroiliitis DDD (degenerative disc disease), lumbar 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, without behavioral disturbance, loses train of thought, poor recall Depressive disorder Dyslipidemia Facet joint disease Fibromyalgia GERD (gastroesophageal reflux disease) History of 2019 novel coronavirus disease (COVID-19) Hypothyroidism Lumbar spondylolysis Nocturnal enuresis Opioid dependence NOAM (obstructive sleep apnea) Osteoporosis Recurrent UTI Spondylosis of lumbosacral region Urgency incontinence Urgency incontinence Surgical History H/O section x2 History of carpal tunnel release bilateral History of total right knee replacement S/P appendectomy S/P cholecystectomy S/P total knee replacement Left Family History Father , at age 81 CAD (coronary artery disease) Cancer Family/Other CAD (coronary artery disease) Mother , at age 74 Diabetes Stroke Grandfather Suicide Family/Other Suicide Other Hypertension Denies family history of Clotting disorder Dementia Chronic kidney disease (CKD) Anesthesia complication Bleeding disorder Lung disease Social History (Reviewed 11/14/21 @ 21:01 by [facility] Smoking and tobacco status: never smoked Second hand smoke exposure: No Alcohol intake: never Substance/Drug Use: never Adopted: No Housing: Prison Marital status: Current occupational status: retired Current gender identity: Female NIH stroke score NIHSS: Facial Palsy - 4: Complete Paralysis Motor Arm Right - 5: No Drift Motor Arm Left - 5: No Movement Motor Leg Right - 6: No Drift Motor Leg Left - 6: No Effort Against [place] Best Language - 9: Mild/Moderate Aphasia Dysarthia - 10: Severe Dysarthia Physical Exam Const: COMMON NORMALS: alert EXAM LIMITATIONS: altered mental status HENMT: COMMON NORMALS: normocephalic, atraumatic, hearing grossly normal bilaterally, external ears normal, Normal external nose present and moist oral mucous membranes HEAD & SCALP: normocephalic and atraumatic NOSE: Normal external nose present EXTERNAL EAR: Yes external ears normal Eye: OTHER: Left eye extraocular muscles intact pupil reactive to light, patient's right eye is squinted so tightly shut and we cannot open it to examine. Neck/C-Spine: COMMON NORMALS: full ROM, no lymphadenopathy, supple, no meningeal signs, no JVD and Thyroid normal THYROID: Thyroid normal Chest: COMMONS NORMALS: normal inspection of the chest and normal palpation of entire chest wall Resp: COMMON NORMALS: normal respiratory effort, No retractions, No use of accessory muscles and clear to auscultation bilaterally AUSCULTATION: clear to auscultation bilaterally Cardio: COMMON NORMALS: no JVD, regular rate, regular rhythm and S1 normal heart sound present RATE: regular rate RHYTHM: regular rhythm HEART SOUNDS: S1 normal heart sound present GI: COMMON NORMALS: Normal to inspection, nondistended, normoactive bowel sounds present, Soft to palpation, non-tender, No hepatosplenomegaly present and no masses PALPATION: Yes Soft to palpation and Yes No hepatosplenomegaly present Neuro: SENSORIUM/ORIENTATION: Yes alert MENINGEAL SIGNS: Yes no meningeal signs OTHER: Moderate left facial droop, right upper and lower extremities good movement against gravity with no drift. Left upper extremity has no movement against at all. Left lower extremity has movement when stimulated with pain but has no movement with commands and has immediate drop when lifted. Patient has spastic word salad slurred type speech that is incomprehendible. MDM - Neuro Symptoms/Deficit Medical Decision Making This patient was brought by EMS with complaints of sudden onset left-sided facial droop and left-sided weakness. With word salad speech. Patient does have a history of this in the past but much more mild. Code stroke was called CT was obtained which showed a large right-sided intraparenchymal bleed. Immediately Neelam Brown was notified and we spoke with Dr. Howe neurology and Dr. Morrison emergency medicine excepted the patient in transfer. Differential Diagnosis Likely cerebrovascular accident; Unlikely carpal tunnel syndrome, convulsions, delirium, peripheral neuropathy or multiple sclerosis Medical Records I reviewed the patient's medical records. Lab Data I reviewed the patient's lab results. 12/26/22 13:30 12/26/22 13:[address] 12/26/22 13: IMPRESSION: 1. Large acute RIGHT intracranial parenchymal hemorrhage involving the temporal and frontal lobes with extension into the RIGHT lateral ventricle. Area of hemorrhage measures 6.9 x 3.1 x 4.9 cm. 2. 6 mm midline shift to the LEFT. 3. Mild ventriculomegaly with intraventricular extension of blood. Notified Agus Maurice DO at 12/26/2022 1:34 PM. Laboratory Results WBC 5.9 10^3/uL (4.0-10.0) 12/26/22 13:30 RBC 4.56 10^6/uL (4.1-5.3) 12/26/22 13:30 Hgb 13.9 g/dL (11.5-15.3) 12/26/22 13:30 Hct 40.3 % (37.0-47.0) 12/26/22 13:30 MCV 88.4 fl (81-99) 12/26/22 13:30 MCH 30.5 pg (28.0-34.0) 12/26/22 13:30 MCHC 34.5 g/dL (30.0-36.0) 12/26/22 13:30 RDW 13.5 % (12.1-15.1) 12/26/22 13:30 Plt Count 224 10^3/cmm (130-400) 12/26/22 13:30 MPV 9.4 fL (7.4-10.4) 12/26/22 13:30 Neut % (Auto) 65.7 % 12/26/22 13:30 Lymph % (Auto) 19.3 % 12/26/22 13:30 [place] % (Auto) 6.9 % 12/26/22 13:30 Eos % (Auto) 7.1 % 12/26/22 13:30 Baso % (Auto) 0.5 % 12/26/22 13:30 Neut # (Auto) 3.87 10^3/uL (1.8-7.7) 12/26/22 13:30 Lymph # (Auto) 1.1 10^3/uL (0.8-4.8) 12/26/22 13:30 [place] # (Auto) 0.4 10^3/uL (0.2-0.9) 12/26/22 13:30 Eos # (Auto) 0.4 10^3/uL (0.0-0.8) 12/26/22 13:30 Baso # (Auto) 0.0 10^3/uL (0.0-0.1) 12/26/22 13:30 Nucleated RBC % (auto) 0 % 12/26/22 13:30 Nucleated RBCs # 0.0 /100WBC 12/26/22 13:30 Discharge Plan Discharge Patient Disposition: Xfer Short-Term Hosp Clinical Impression: Intracranial hemorrhage, Hemorrhagic stroke Condition: Critical Prescriptions: No Action levothyroxine 25 mcg capsule 25 mcg PO DAILY@05 acetaminophen 325 mg capsule 650 mg PO Q6H Rx Instructions: give with tramadol aspirin [Adult Aspirin Regimen] 81 mg tablet,delayed release (DR/EC) 81 mg PO DAILY@08 trazodone 100 mg tablet 100 mg PO DAILY@21 PRN (Reason: Sleep) duloxetine [Cymbalta] 60 mg capsule,delayed release(DR/EC) 60 mg PO DAILY@08 loratadine 10 mg tablet 10 mg PO DAILY amlodipine 2.5 mg tablet 2.5 mg PO DAILY 30 Days Qty: 30 5RF artifi.tears(hypromellose)(PF) 0.3 % drops 1 drp ophthalmic (eye) BID PRN calcium carbonate [Antacid (calcium carbonate)] 200 mg calcium (500 mg) tablet,chewable 200 mg PO BID PRN Biotene Dry Mouth Oral Rinse Mouthwash 15 ml mucous membrane .prn Rx Instructions: swish for 15-30 secs , then spit out; do not swallow Digestive Advantage Probio-Pre 400 million cell tablet,chewable PO DAILY Biotene Dry Mouth Oral Rinse Mouthwash 15 ml mucous membrane DAILY Rx Instructions: swish for 15-30 secs , then spit out; do not swallow hydrocodone-acetaminophen 5-325 mg tablet 1 tab PO BID PRN pravastatin 10 mg tablet 10 mg PO .1/2 tab daily diclofenac sodium [Arthritis Pain (diclofenac)] 1 % gel 2 g topical .2x daily Rx Instructions: apply to single elbow, wrist or hand; for hand includes palm/fingers/back of hand fentanyl 50 mcg/hr patch 72 hour 1 patch transdermal Q72H 30 Days Qty: 10 0RF Rx Instructions: fill on or after 06/19/21 oxybutynin chloride 15 mg tablet extended release 24 hr 15 mg PO DAILY Qty: 30 12RF sennosides-docusate sodium [Senna Plus] 8.6-50 mg tablet 1 tab-cap PO DAILY Myrbetriq 25 mg tablet extended release 24 hr 25 mg PO Q24H Qty: 30 12RF Rx Instructions: In addition to OXYBUTYNIN 15 mg daily. estradiol [Estrace] 0.01 % (0.1 mg/gram) cream 0.25 appful vaginal DAILY Qty: 42.5 12RF Rx Instructions: Apply as directed daily x14 days After that apply as directed every Sunday. fentanyl 50 mcg/hr patch 72 hour 1 patch transdermal Q72H 30 Days Qty: 10 0RF Rx Instructions: fill on or after 08/18/21 tizanidine 2 mg Tablet 2 mg PO TID PRN (Reason: Muscle Spasm) Miralax 17 gram Powder In Packet 8.5 g PO DAILY@08 Rx Instructions: mix in 2 ounces of water Zofran 4 mg Tablet 4 mg PO TID PRN (Reason: Nausea) Senokot-S 8.6-50 mg Tablet 1 tab PO BID PRN (Reason: Constipation) Milk of Magnesia 400 mg/5 mL Suspension 30 ml PO DAILY PRN (Reason: Constipation) Dulcolax (bisacodyl) 10 mg Suppository 10 mg [place] DAILY PRN (Reason: Constipation) Fleet Enema 19-7 gram/118 mL Enema 118 ml [place] DAILY PRN (Reason: Constipation) fluticasone propionate 50 mcg/actuation [place],Suspension 2 spray INTRANASAL DAILY@08 cyanocobalamin (vitamin B-12) 25 mcg Tablet 250 mcg PO DAILY@08 [facility] 100,000 unit/gram powder See Rx Instructions .ROUTE .COMPLEX Rx Instructions: apply topically to affected area bid prn rash Referrals: Kim Kemp MD [Primary Care Provider] - Coding Level of Care Code ED Emergency Communications Dispatcher for g Jose Francisco
[2022-12-26 13:42] LABS: Basophils % 0.5 %; Eosinophils # 0.4 10^3/uL (0.0-0.8); Eosinophils % 7.1 %; Hematocrit 40.3 % (37.0-47.0); Hemoglobin 13.9 g/dL (11.5-15.3); Lymphocytes # 1.1 10^3/uL (0.8-4.8); Lymphocytes % 19.3 %; Mean Corpuscular HGB Conc 34.5 g/dL (30.0-36.0); Mean Corpuscular Hemoglobin 30.5 pg (28.0-34.0); Mean Corpuscular Volume 88.4 fl (81-99); Mean Platelet Volume 9.4 fL (7.4-10.4); Monocytes # 0.4 10^3/uL (0.2-0.9); Monocytes % 6.9 %; Neutrophils # 3.87 10^3/uL (1.8-7.7); Neutrophils % 65.7 %; Nucleated Red Blood Cells % 0 %; Platelet Count 224 10^3/cmm (130-400); Red Blood Count 4.56 10^6/uL (4.1-5.3); Red Cell Distribution Width 13.5 % (12.1-15.1); White Blood Count 5.9 10^3/uL (4.0-10.0)
[2022-12-26 13:54] LABS: INR 0.89 (0.8-1.2)
[2022-12-26 13:55] LABS: Partial Thromboplastin Time 29.5 SECONDS (23.9-36.7)
[2022-12-26 13:59] LABS: Alanine Aminotransferase 22 U/L (0-33); Albumin Level 3.8 g/dL (3.5-5.2); Alkaline Phosphatase 112 U/L (35-105); Aspartate Amino Transferase 20 U/L (0-32); Blood Urea Nitrogen 11 mg/dL (8-23); Calcium 9.3 mg/dL (8.5-10.5); Carbon Dioxide 29 mmol/L (22-29); Chloride 100 mmol/L (98-107); Globulin 2.7 g/dL (1.3-4.6); Glucose 139 mg/dL (65-115); Osmolality Calculated 290 mOsm/kg (285-295); Sodium 139 mmol/L (136-145); Total Bilirubin 0.2 mg/dL (0.15-1.2); Total Protein 6.5 g/dL (6.6-8.7)
[2022-12-26 14:01] LABS: Anion Gap 14.1 (5-19); Potassium 4.1 mmol/L (3.5-5.1)
--- NOTE | 2022-12-26 14:03 | PC.PHAR ---
pt is from [facility]-medication entered is from the pts medication mar and tar that rodolfo santos sent to the er
[2022-12-26 14:24] LABS: Add Urine Microscopic? NO; Charge for UA Resulting for Rev
[2022-12-26 14:30] LABS: Bilirubin Urine Neg (Negative); Blood Urine Neg (Negative); Glucose Urine UA Norm (Normal); Ketones Urine Negative (Negative); Leukocyte Esterase Urine Negative (Negative); Nitrate Urine Negative (Negative); Protein Urine Neg (Negative); Urine Appearance Clear (CLEAR); Urine Color Yellow (Yellow); Urobilinogen Urine Norm (Negative); pH Urine 7 (5-7)
[2022-12-26 14:42] LABS: Amphetamines Screen Urine Negative (Negative); Barbiturates Screen Urine Negative (Negative); Benzodiazepines Screen Urine Negative (Negative); Cocaine Screen Urine Negative (Negative); Opiate Screen Urine Positive (Negative); PCP Screen Urine Negative (Negative); THC Screen Urine Negative (Negative)
[2022-12-31 02:24] LABS: Glucose Point of Care 132 mg/dL (70-110)
== END 2022-12-26 14:40 | disposition short-term general hospital (02) ==
PROVIDERS: Emergency Provider Emergency Medicine; PCP Family Medicine
DX: I62.9 Nontraumatic intracranial hemorrhage, unspecified (principal); Z79.82 Long term (current) use of aspirin; I25.10 Atherosclerotic heart disease of native coronary artery without angina pectoris; I10 Essential (primary) hypertension; F03.90 Unspecified dementia, unspecified severity, without behavioral disturbance, psychotic disturbance, mood disturbance, and anxiety; E78.5 Hyperlipidemia, unspecified
CPT/HCPCS: 36415; 36416; 51702; 70450; 80053; 80306; 81003; 82962; 85025; 85610; 85730; 99285; 99291; 99292